=== PATIENT | female | born 1955 | race Caucasian/White ===

== ENCOUNTER 2024-11-30 15:27 | Outpatient (AMB) | payer OTHER, SELFPAY ==
--- NOTE | 2024-11-30 15:49 | MHC.OFFVIS ---
Intake Visit Reasons: 1 Year follow up/ Falls Allergies No Known Allergies Allergy (Verified 11/24/24 13:46) Medication List - Last Reconciled 11/30/24 by Tony Donnelly MD alendronate 70 mg PO QWEEK lamotrigine 200 mg PO BID lamotrigine 25 mg PO BID HPI Comments Details: 69 yo LH woman with neurofibromatosis type I, seizure disorders since she was 15 years old, and s/p ASSISTANT SHIFT SUPERVISOR shunting for NPH in 2021 for gait disorder and bladder control issue. Seizures included hearing voices leading to blacking out and tongue bite. Last seizure was in 2004. Lamictal has helped to control seizures. She used to see Dr. Solis and needed prescription. [facility] Medical History (Updated 11/30/24 @ 15:52 by Tony Donnelly MD) Seizure disorder Neurofibromatosis, peripheral, NF1 Surgical History (Updated 11/30/24 @ 15:52 by Tony Donnelly MD) S/P ASSISTANT SHIFT SUPERVISOR shunt Review of Systems Const Details: Constitutional:?No fever, chills, fatigue, weight loss, or night sweats. HEENT:?No headache, vision changes, hearing loss, nasal congestion, sore throat. Neurological:?No dizziness, syncope, seizures, numbness, tingling, weakness, tremors, memory loss. Psychiatric:?No anxiety, depression, mood swings, sleep disturbance, or hallucinations. Endocrine:?No heat/cold intolerance, polydipsia, polyuria, or hair/skin changes. Hematologic/Lymphatic:?No easy bruising, bleeding, or lymphadenopathy. Integumentary (Skin):?No rash, lesions, itching, or color changes. ? Physical Exam Neuro Other: Mental Status: Alert and oriented to person, place, and time. Normal attention. Normal spontaneous speech, fluency, and comprehension. No obvious issues with mood and memory. Affect is appropriate. Cranial Nerves: CN II: Visual clark full to confrontation, visual acuity intact. CN III, IV, : Pupils equal, round, reactive to light and accommodation. Extraocular movements are normal. CN V: Facial sensation is normal. CN VII: Facial movements symmetrical. CN VIII: Hearing intact to bedside conversation is normal. CN IX, X: Palate elevates symmetrically. CN XI: Shoulder shrug and head turn symmetrical. CN XII: Tongue midline without atrophy or fasciculations. Motor: Bulk and tone normal in all extremities. No significant muscle weakness in arms and legs. No drift. Reflexes: Deep tendon reflexes 2+ and symmetric. Plantar response down-going bilaterally. Coordination: Hlwjar-fr-vqqn and dcxu-hm-umjc testing normal. No dysmetria. Gait and Station: No obvious gait abnormality. No ataxia or instability. Sensory: Intact to light touch, pinprick, and vibration. Romberg is negative. Extrapyramidal: Full facial expressions and blinking. No rigidity. Movements are appropriate with no tremor or abnormality. Speech: Normal; no dysarthria or tremor. Assessment & Plan Assessment & Plan (1) Seizure disorder: Code(s): G40.909 - Epilepsy, unspecified, not intractable, without status epilepticus Category: Medical (2) Neurofibromatosis, peripheral, NF1: Code(s): Q85.01 - Neurofibromatosis, type 1 Category: Medical (3) S/P ASSISTANT SHIFT SUPERVISOR shunt: Code(s): Z98.2 - Presence of cerebrospinal fluid drainage device Category: Surgical Plan Impression: 1. 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 Neurofibromatosis type 1 3. Status post ventriculoperitoneal shunting done for clinical features of normal-pressure hydrocephalus in 2021 4. Recent lamotrigine level was 14.4, which might be the reason for dizziness and falling. Recommendations: 1. Lamotrigine 200mg tab, 1/2 in am and one at night 2. DC Lamotrigine 25mg tabs, which she was not taking anyway 3. Lamotigine level in a week time Orders: Orders Lamotrigine Lamictal 1 Week G40.909 - Epilepsy, unspecified, not intractable, without status epilepticus Coding Level of Care Code Est Pt Level 4 (04026) Diagnoses Seizure disorder G40.909 Neurofibromatosis, peripheral, NF1 Q85.01 S/P ASSISTANT SHIFT SUPERVISOR shunt Z98.2
--- OUTSIDE RECORDS SUMMARY | 2024-11-30 15:59 | XMS_ITS | Encounter Summary ---
Author Organization [facility] Address [address] [place] [address] Care Team Providers Care Studio Hand Name Role Phone Angelica San Primary Care Provide r Reason for Visit * Reason Onset Date Comments PAC Appt Request - Established 11/02/2024 Encounter Details Date Type Department Care Team (Late Contact Info) Description 11/02/2024 Telephone [facility] [address] [place] [address] [phone] Telephone Intake, Staff PAC Appt Request - Established Social History Tobacco Use Types Packs/Day Years Used Date Smoking Tobacco: Never Smokeless Tobacco: Never Alcohol Use Standard Drinks/Week Comments Never 0 (1 standard drink = 0.6 oz pur e alcohol) Comments No Sex and Gender Information Value Date Recorded Sex Assigned at Female 06/07/2020 1:17 PM EST Legal Sex Female 12:10 AM EDT Gender Identity Female 06/07/2020 1:17 PM EST Sexual Orientation Straight 06/07/2020 1: 17 PM EST documented as of this encounter Miscellaneous Notes * Telephone Encounter - Rosa Velazquez - 11/02/2024 3:[address] Christian Pt Pt's sister is calling to state that the appt on is supposed to be a telehealth, but it's luzma as an office visit. If you could please contact the pt's sister eula back at the number listed? @[phone] Thanks documented in this encounter Plan of Treatment Not on file documented as of this encounter Visit Diagnoses Not on filedocumented in this encounter Care Teams Studio Hand Relationship Specialty Start Date End Date Angelica San [address] [place] [id number] PCP - General Internal Medicine 11/21/23 documented as of this encounter
--- OUTSIDE RECORDS SUMMARY | 2024-11-30 15:59 | XMS_ITS | Clinical Summary ---
Author Organization [facility] Address [address] [facility] [address] [place] [id number] Phone Care Team Providers Care Box Strapper Name Role Phone Pastor Palomo MD Primary Care Provider [phone] Allergies No known active allergies Medications lamoTRIgine (LAMICTAL) 200 MG IMMEDIATE release tablet Take 200 mg by mouth 2 (two) times a day. Active cyanocobalamin, vitamin B-12, 100 MCG tablet Take 100 mcg by mouth daily. Active pyridoxine, vitamin B6, (B-6) 25 MG tablet Take 25 mg by mouth daily. Active atorvastatin (LIPITOR) 40 MG tablet Take 40 mg by mouth daily. Active alendronate (FOSAMAX) 35 MG tablet Take 35 mg by mouth every 7 days. Take in the morning with a full glass of water, on an empty stomach, and do not take anything else by mouth or lie down for the next 30 min. Active docusate sodium (COLACE) 100 MG capsule Take 1 capsule (100 mg total) by mouth 2 (two) times a day as needed for mild constipation. 20 capsule 3 Active Additional Information Patient not taking.Reported on 08/29/2023 calcium carbonate/vitam in D3 (CALCIUM 500 + D, D3, ORAL) Take 500 mg by mouth daily. 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 Normal pressure hydrocephalus 08/29/2023 Seizures 03/07/2023 Social History Tobacco Use Types Packs/Day Years Used Date Smoking Tobacco: Never Smokeless Tobacco: Never Tobacco Cessation:Counseling Given: Not Answered Alcohol Use Standard Drinks/Week Comments Never 0 (1 standard drink = 0.6 oz pur e alcohol) Education Answer Date Recorded Are you interested in more education? Not on yesika e 09/14/2022 Are you concerned about learning? Not on file 09/14/2022 No 09/14/2022 No 09/14/2022 Digital Access Answer Date Recorded No 10/07/2022 No 10/07/2022 Reliable internet access at home? Not on file 10/07/2022 Device with a working camera? Not on file Intimate Partner Violence Answer Date R ecorded Are you denied basic needs s uch as food, clothing, or medical care? No 03/07/2023 In the past 12 months have y ou been in a relationship with a person who hurts, threatens, or tries to control you? No 03/07/2023 Are you denied basic needs s uch as food, clothing, or medical care? No 03/07/2023 In the past 12 months have y ou been in a relationship with a person who hurts, threatens, or tries to control you? No 03/07/2023 Comments No Sex and Gender Information Value Date Recorded Sex Assigned at Female 03/01/2021 11:11 AM EDT Legal Sex Female 6:44 PM EST Gender Identity Female 03/01/2021 11:11 AM EDT Sexual Orientation Straight 03/01/2021 11 :11 AM EDT Last Filed Vital Signs Vital Sign Reading Time Taken Comments Blood Pressure 122/79 08/29/2023 1:43 PM EDT Pulse 81 08/29/2023 1:43 PM EDT Temperature 36.4 C (97.6 F) 08/29/2023 1:43 PM EDT Respiratory Rate 16 08/29/2023 1:43 PM EDT Oxygen Saturation 100% 08/29/2023 1:43 PM EDT Inhaled Oxygen Concentration - - Weight 70.5 kg (155 lb 6.4 oz) 08/29/2023 1:43 P M EDT Height 162.6 cm (5' 4 ) 03/07/2023 6:30 AM EDT Body Mass Index 26.67 03/07/2023 6:30 AM EDT Plan of Treatment Upcoming Encounters Date Type Department Care Team (Late st Contact Info) Description 12/01/2024 2:00 PM EDT Office Visit [facility] [address], [address] [place] [address] Bandar Moore MD [address] [place] [address] [email or web address] Maintenance Due Date Last Done Comments LIPID PANEL 1956 DEPRESSION SCREENING 1968 HEPATITIS C SCREENING 02/20/1974 SCREENING FOR DIABETES 02/20/1991 MAMMOGRAM 1996 COLOGUARD 02/20/2001 COLONOSCOPY 02/20/2001 COLORECTAL CANCER SCREENING 02/20/2001 FIT TEST 02/20/2001 FOBT 02/20/2001 SIGMOIDOSCOPY 02/20/2001 VIRTUAL COLONOSCOPY 02/20/2001 PNEUMOCOCCAL VACCINES (50+ years) (1 of 1 - PCV) 02/20/2006 ZOSTER VACCINES (2 of 2) 10/04/2019 08/09/2019 OSTEOPOROSIS SCREENING INITI AL (ONE-TIME) 02/20/2021 COVID-19 VACCINE (4 - 2023-2 5 season) 2024 03/16/2021, 08/26/2020, 07/29/2020 Adult Td,Tdap Booster 12/05/2025 12/06/2015 , 02/15/2006 RSV VACCINE (1 - 1-dose 75+ series) 02/20/2031 SMOKING STATUS SCREENING (On ce After 26 Yrs) Completed 03/07/2023 HEPATITIS A VACCINES Aged Out No long er eligible based on patient's age to complete this topic HIB VACCINES Aged Out No longer eligi ble based on patient's age to complete this topic MENINGOCOCCAL VACCINES (ACWY) Aged Out No longer eligible based on patient's age to complete this topic MENINGOCOCCAL VACCINES (B) Aged Out N o longer eligible based on patient's age to complete this topic Medical Devices Implanted Type Area Enterprise Infrastructure Architect Device Identifier Shelf Expiration Date Model / Serial / Lot Zaynab[employer] Hakim Programmable Shunt Valve-01/25/2021 Implanted:01/26/20 21 (Quantity not on file) ANIA Description:11/05/22 [id number] Pierce supriya had a Codman Hakim programmable shunt valve implanted on 01/25/21 at [facility], per the surgical notes. Per the legal administrative assistant, The Codman Hakim Programmable Valve is considered to be MRI Conditional according to ASTM F2503. The valve demonstrates no known hazards when an MRI is performed under the following conditions: MRI can be performed at any time after implantation Use an MRI System with a static magnetic field of 3 luiz or less Use an MRI System with a spatial gradient of 720 Guass/cm or less Limit the exposure to RF energy to a hewcm-xbwa-istexwqu specific absorption rate (RAUL) of W/kg for 15 minutes Verify the valve setting after the MRI procedure (see 'Programming the Valve') Insurance MEDICARE PART A & B [facility] MEDICARE REPLACEMENT MEDICARE PART A & B Member Subscriber Plan / Payer (Ef fective 2004-Present) Name:Antonina Omer Member ID:[id number] Relation to Subscriber:Self Name:Antonina Omer Subscriber ID:[id number] Payer ID:[id number] Group ID:Not on file Type:Medicare Address: [employer] [address] [place] [id number] [place] [address] MEDICARE REPLACEMENT MEDICARE PART A & B MEDICARE PART A & B MEDICARE PART A & B O MEDICARE REPLACEMENT MEDICARE PART A & B MEDICARE PART A & B Member Subscriber Plan / Payer (Ef fective 2004-Present) Name:Antonina Omer Member ID:[id number] Relation to Subscriber:Self Name:Antonina Omer Subscriber ID:[id number] Payer ID:[id number] Group ID:Not on file Type:Medicare Address: [employer] [address] MEDICARE REPLACEMENT [place] [address] MEDICARE PART A & B [facility] MEDICARE REPLACEMENT MEDICARE PART A & B [facility] MEDICARE REPLACEMENT Care Teams Box Strapper Relationship Specialty Start Date End Date Pastor Palomo MD [address] [place] [address] PCP - General Internal Medicine 03/01/21 Additional Source Comments The information contained in this document represents components of the legal health record. It is not the complete legal health record.[facility]
--- OUTSIDE RECORDS SUMMARY | 2024-11-30 15:59 | XMS_ITS | Clinical Summary ---
Author Organization [facility] [address] [place] [address] [place] [phone] Phone Care Team Providers Care Shore Worker Name Role Phone Mami Jimenez MD Primary Care Prov ider Allergies Active Allergy Reactions Criticality Noted Date Comments Atorvastatin Weakness Low 01/01/2024 Other Reaction(s): Myalgia and Joint Pain Medications ascorbic acid (VITAMIN C) 500 mg tablet OTC Active calcium carbonate (CALCIUM 500 ORAL) OTC Active CYANOCOBALAMIN, VITAMIN B-12, ORAL OTC Active pyridoxine HCl, vitamin B6, (VITAMIN B-6 ORAL) OTC Active lamoTRIgine (LaMICtal) 200 mg tablet Take 1 tablet (200 mg total) by mouth 2 (two) times a day. Dr. Gale from [place] prescribed meds Active alendronate (FOSAMAX) 70 mg tablet TAKE 1 TABLET BY MOUTH EVERY 7 DAYS 12 tablet 1 5 Active simvastatin (ZOCOR) 10 mg tablet Take 1 tablet (10 mg total) by mouth at bedtime. 30 each 5 5 03/06/20 25 Active Active Problems Problem Noted Date Diagnosed Date Hydrocephalus, communicating (CMS/HCC V24, CMS/H CC V28) 08/09/2020 Thyroid nodule 02/16/2019 Overview (04/16/2024): Last Assessment & Plan: Encouraged her to have a thyroid ultrasound at her convenience. She seems to think this may have been diagnosed previously, but is uncertain. Will also check TFT's. Ankle swelling, left 01/15/2019 NPH (normal pressure hydroce phalus) (CMS/HCC V24, CMS/HCC V28) 01/15/2019 Overview (04/16/2024): Dr. 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 rock Encounters Date Type Department Care Team Description 11/16/2024 8:30 AM EDT Office Visit Adult [address] [phone] Rosa Allison PA Hydrocephalus, communicating (CMS/HCC V24, CMS/HCC V28) (Primary Dx); NPH (normal pressure hydrocephalus) (CMS/HCC V24, CMS/HCC V28); Neurofibromatosis (CMS/HCC V24, CMS/HCC V28); Convulsions, unspecified convulsion type (CMS/HCC V24, CMS/HCC V28); Gait instability; Frequent falls; Elevated glucose; Seen in emergency department 11/09/2024 11:16 AM EDT - 11/09/2024 4:29 PM EDT Emergency [facility] Emergency [address] [place] [id number] Fall, initial encounter (Primary Dx) Discharge Disposition: Home or Self Care 10/29/2024 8:45 AM EDT Office Visit Adult [address] [phone] Sally Singh NP Dizziness (Primary Dx); Vertigo; Decreased mobility; Encounter for examination following treatment at hospital 10/15/2024 10:00 AM EDT Consult Endocrinology - [address] [phone] Kwadwo Babcock MD Thyroid nodule (Primary Dx) 10/01/2024 10:05 AM EDT - 10/01/2024 3:19 PM EDT Emergency [facility] Emergency [address] [place] [phone] Wilber Dunne MD Vertigo (Primary Dx) Discharge Disposition: Home or Self Care 09/23/2024 Telephone Adult Medicine [address] [phone] Mami Patricia MD faxed order ([facility] PT - #[id number]) 09/16/2024 8:41 AM EDT - 09/16/2024 11:59 PM EDT Hospital Encounter Radiology Department - [address] [phone] Thyroid nodule Discharge Disposition: Home or Self Care 09/07/2024 8:45 AM EDT Office Visit Adult Medicine [address] [phone] Brenda Altamirano PA Hypercholesterolemia (Primary Dx); Age-related osteoporosis without current pathological fracture; Neurofibromatosis (CMS/HCC V24, CMS/HCC V28); Gait instability; Thyroid nodule from Last 3 Months Immunizations Name Administration Dates Next Due Influenza Quadravalent, MDCK , 0.5ml, preservative free (Flucelvax) 6mo and older 01/15/2019 Influenza trivalent, 0.5mL ( Fluad) 65yo and older 02/14/2022,2021 Influenza trivalent, 0.5mL, preservative free (Fluarix; FluLaval; Fluzone) ages 6mo and older (Afluria) 3 years and older 01/12/2020,02/08/2018,02/07/2017,02/05,03/14/2015,02/15/2006 Influenza trivalent, with pr eservative (Fluzone; Afluria) 6mo and older 03/19/2012,03/07/2011 Pfizer (ages 12 & older) Biv alent, COVID-19 01/30/2022 Pneumococcal conjugate 20 va lent (Prevnar 20, PCV 20) 2mo and older 12/18/2022 Pneumococcal polysaccharide 23 valent (Pneumovax 23) 2yo and older 06/23/2021 Td Tetanus diptheria (Tdvax) 7yo and older 02/15/2006 Tdap Tetanus diptheria acell ular pertussis (Boostrix; Adacel) 7yo and older 12/06/2015 Zoster recombinant (Shingrix ) 19yo and older 08/09/2019 Surgical History Surgery Date Site/Laterality Comments OTHER SURGICAL HISTORY PROCEDURE: CO HEMORRHOIDECTOMY NTRNL & XTRNL 1 COLUMN/GROUP OTHER SURGICAL HISTORY 02/15 PROCEDURE: MAMMOGRAM FLEXIBLE SIGMOIDOSCOPY 10/31/2007 PROCEDURE: CO SIGMOIDOSCOPY FLX DX W/COLLJ SPEC BR/WA IF PFRMD; COMMENT: Negative to 30 cm OTHER SURGICAL HISTORY PROCEDURE: HISTORICAL UNSPECIFIED SURGERY; COMMENT: fibroma in arm TONSILLECTOMY PROCEDURE: HISTORICAL TONSILLECTOMY Medical History Medical History Date Comments Other convulsions 02/11/2006 DX:Other convu lsions Neurofibromatosis, unspecified(237.70) 02/15/2006 DX:Neurofibromatosis, unspecified(237.70) Pure hypercholesterolemia 02/15/2006 DX:Pur e hypercholesterolemia Special screening for malign ant neoplasms, colon 10/31/2007 DX:Special screening for mal ignant neoplasms, colon; COMMENT: Negative/inc CN to 30 cm 10/31/2007. Family History Medical History Relation Name Comments Breast cancer Mother 80s Colon cancer Neg Hx Ovarian cancer Neg Hx Pancreatic cancer Neg Hx Prostate cancer Neg Hx Uterine cancer Neg Hx Relation Name Status Comments Mother 80s Social History Tobacco Use Types Packs/Day Years Used Date Smoking Tobacco: Never Smokeless Tobacco: Never Tobacco Cessation:Counseling Given: Not Answered Alcohol Use Standard Drinks/Week Comments Yes 0 (1 standard drink = 0.6 oz pur e alcohol) Housing Instability Answer Date Recorde d Are you worried that in the next 2 months you may not have stable housing? No 07/01/2024 Food Access & Nutrition Answer Date Rec orded Do you have access to a vari ety of food including fruits and vegetables? Yes 07/01/2024 Health Literacy Answer Date Recorded How often do you need to hav e someone help you when you read instructions, pamphlets, or other written material from your doctor or pharmacy? Often 07/01/2024 Caregiver: How often do you need to have someone help you when you read instructions, pamphlets, or other written material from your doctor or pharmacy? Not on file 07/01/2024 Transportation Answer Date Recorded Has the lack of transportati on kept you from meetings, work, or from getting things needed for daily living? No Has the lack of transportati on kept you from medical appointments or from getting medications? No 07/01/2024 Social Isolation Answer Date Recorded How often do you feel lonely or isolated from th ose around you? Rarely 07/01/2024 Food Risk Answer Date Recorded Within the past 12 months we worried whether our food would run out before we got money to buy more. Never true 07/01/2024 Within the past 12 months th e food we bought just didn't last and we didn't have money to get more. Never true 07/01/2024 Dependent Care Answer Date Recorded Do you need help finding or paying for care for your loved ones. For example, child protective services specialist or elderly care for an older adult? No 07/01/2024 Education Answer Date Recorded Do you think completing more education or training, like finishing a GED, going to college, or learning a trade, would be helpful for you? No 07/01/2024 Employment and Income Answer Date Recor ded During the last four weeks, have you been actively looking for work? No 07/01/2024 Living Situation Answer Date Recorded What is your living situation? 0 07/01/2024 Comments No Sex and Gender Information Value Date Recorded Sex Assigned at Not on file Legal Sex Female 7:54 PM EST Gender Identity Not on file Sexual Orientation Not on file Obstetrics History Para Term AB IAB SAB Ectopic Multiple Livin g Live Births 0 0 0 Last Filed Vital Signs Vital Sign Reading Time Taken Comments Blood Pressure 104/64 11/16/2024 8:29 AM EDT Pulse 92 11/16/2024 8:29 AM EDT Temperature 36.6 C (97.9 F) 11/16/2024 8:29 AM EDT Respiratory Rate 14 11/16/2024 8:29 AM EDT Oxygen Saturation 96% 11/16/2024 8:29 AM EDT Inhaled Oxygen Concentration - - Weight 71.7 kg (158 lb) 11/16/2024 8:29 AM EDT Height 162.6 cm (5' 4 ) 11/16/2024 8:29 AM EDT Body Mass Index 27.12 11/16/2024 8:29 AM EDT Plan of Treatment Upcoming Encounters Date Type Department Care Team (Late st Contact Info) Description 02/23/2025 1:00 PM EDT Office Visit [facility] [address] [place] [phone] Cooper Woo MD [address] [place] [address] Dr [address] [place] [address] 02/25/2025 10:00 AM EDT Appointment Bone Density - [address] [phone] 03/09/2025 9:30 AM EDT Office Visit Adult [facility] - [address] [phone] Mami Jimenez MD [address] [place] [address] [phone] Health Maintenance Due Date Last Done Comments Zoster Vaccines (2 of 2) 10/04/2019 08/09/2019 Medicare Annual Wellness Visit 04/21/2022 Influenza Vaccine (#1) 2025 2, 2021, 01/12/2020, Additional history exists Social Influencers of Health Screening 07/01/2025 07/01/2024 Falls Risk Assessment 07/02/2025 07/02/2024 DTaP,Tdap,and Td Vaccines (3 - Td or Tdap) 12/05/2025 12/06/2015, 02/15/2006 Breast Cancer Screening 06/13/2026 06/13/19 25, 05/25/2023, 05/19/2022, Additional history exists Colorectal Cancer Screening: Colonoscopy 08/31/2027 08/30/2022 Cholesterol Screening (Lipid Panel) 09/07/2029 09/07/2024, 02/13/2024, 02/13/2024 RSV Immunization Adult Patients (1 - 1-dose 75+ series) 02/20/2031 Osteoporosis Screening (Bone Density Screening) 05/18/2034 05/18/2024, 09/29/2021 Hepatitis C Screening Completed 10/17/2016 Pneumococcal Vaccine: 50+ Years Completed 12/18/2022, 06/23/2021 Depression Screening Completed 08/30/2024 COVID-19 Vaccine Completed 10/15/2024, 05/2023, 02/13/2023, Additional history exists HIB Vaccines Aged Out No longer eligi ble based on patient's age to complete this topic HPV Vaccines Aged Out No longer eligi ble based on patient's age to complete this topic Hepatitis A Vaccines Aged Out No long er eligible based on patient's age to complete this topic Hepatitis B Vaccines Aged Out No long er eligible based on patient's age to complete this topic IPV Vaccines Aged Out No longer eligi ble based on patient's age to complete this topic MMR Vaccines Aged Out No longer eligi ble based on patient's age to complete this topic Meningococcal ACWY Vaccine Aged Out N o longer eligible based on patient's age to complete this topic Meningococcal B Vaccine Aged Out No l onger eligible based on patient's age to complete this topic RSV Immunization Patients Under 20 months Aged Out No longer eligible based on patient's age to complete this topic Varicella Vaccines Aged Out No longer eligible based on patient's age to complete this topic Procedures Procedure Name Priority Date/Time Associated Diagnosis Comments BASIC METABOLIC PANEL Routine 11/30/2024 8:48 AM EDT Elevated glucose HEMOGLOBIN A1C Routine 11/30/2024 8:48 AM EDT Elevated glucose ECG ANNOTATED 11/10/2024 NOEL URINE CULTURE TUBE STAT 11/09/2024 3:03 PM EDT URINALYSIS WITH REFLEX MICROSCOPIC AND CULTURE STAT 11/09/2024 3:03 PM EDT URINALYSIS WITH REFLEX MICROSCOPIC AND CULTURE STAT 11/09/2024 3:[address] HEAD WO CONTRAST STAT 11/09/2024 2 :23 PM EDT CBC WITH AUTO DIFFERENTIAL STAT 11/09/2024 11:47 AM EDT MAGNESIUM STAT 11/09/2024 11:47 AM EDT BASIC METABOLIC PANEL STAT 11/09/2024 11:47 AM EDT CBC AND DIFFERENTIAL STAT 11/09/2024 11:47 AM EDT POCT GLUCOSE BLOOD Routine 11/09/2024 11 :44 AM EDT ECG 12-LEAD STAT 11/09/2024 11:30 AM EDT LAMOTRIGINE LEVEL STAT 10/01/2024 10: 57 AM EDT CBC WITH AUTO DIFFERENTIAL STAT 10/01/2024 10:41 AM EDT TROPONIN I HIGH SENSITIVITY STAT 10/01/2024 10:41 AM EDT MAGNESIUM STAT 10/01/2024 10:41 AM EDT BASIC METABOLIC PANEL STAT 10/01/2024 10:41 AM EDT CBC AND DIFFERENTIAL STAT 10/01/2024 10:41 AM EDT ECG 12-LEAD STAT 10/01/2024 10:28 AM EDT US HEAD NECK SOFT TISSUE Routine 09/16/2024 9:14 AM EDT Thyroid nodule COMPREHENSIVE METABOLIC PANEL Routine 09/07/2024 10:20 AM EDT Hypercholesterolemia LIPID PANEL WITH REFLEX TO DIRECT LDL Routine 09/07/2024 10:20 AM EDT Hypercholesterolemia THYROID STIMULATING HORMONE WITH REFLEX TO FREE T4 AND FREE T3 Routine 09/07/2024 10:20 AM EDT Thyroid nodule MG MAMMO DIGITAL SCREENING W NIC BILAT Routine 06/13/2024 1:07 PM EST Encounter for screening mammogram for breast cancer BD BONE DENSITY DXA AXIAL SKELETON Routine 05/18/2024 9:39 AM EST Encounter for screening for osteoporosis HM HEPATITIS C SCREENING Routine 10/17/2016 from Last 3 Months or Most Recently Relevant to Health Maintenance Results * Hemoglobin A1c (11/30/2024 8:48 AM EDT) [facility] Hemoglobin A1C 5.6 <6.5 % LAB CHEMISTRY METHOD 11/30/2024 11:26 AM EDT [facility] Mean Bld Glu Estim. 114 mg/dL LAB CHEMISTRY METHOD 11/30/2024 11:26 AM EDT [facility] Blood Venous blood specimen / Unknown Venipuncture / Unknown 11/30/2024 8:48 AM EDT 11/30/2024 8:48 AM EDT us Rosa SINGH LAB BLOOD ORDERABLES Final Resu lt [facility] [address] [place] [address], * (ABNORMAL) Basic metabolic panel (11/30/2024 8:48 AM EDT) Only the most recent of3 resultswithin the time period is included. [facility] Sodium 138 133 - 145 mmol/L LAB CHEMISTRY METHOD 11/30/2024 1:47 PM EDT [facility] Potassium 4.4 3.5 - 5.5 mmol/L LAB CHEMISTRY METHOD 11/30/2024 1:47 PM EDT [facility] Chloride 105 96 - 110 mmol/L LAB CHEMISTRY METHOD 11/30/2024 1:47 PM T [facility] CO2 26 21 - 32 mmol/L LAB CHEMISTRY METHOD 11/30/2024 1:47 PM [facility] Anion Gap 7 3 - 11 LAB CHEMISTRY METHOD 11/30/2024 1:47 PM [facility] Glucose 86 70 - 100 mg/dL LAB CHEMISTRY METHOD 11/30/2024 1:47 PM [facility] BUN 35(H) 5 - 25 mg/dL LAB CHEMISTRY METHOD 11/30/2024 1:47 PM [facility] Creatinine 0.73 0.50 - 1.10 mg/dL LAB CHEMISTRY METHOD 11/30/2024 1:47 PM [facility] eGFR 90 >=60 mL/min/1. 73m2 LAB CHEMISTRY METHOD 11/30/2024 1:47 PM [facility] Comment:Calculation based on the Chronic Kidney Disease Epidemiology Collaboration (CKD-EPI) equation refit without adjustment for race. BUN/Creatinine Ratio 47.9 LAB CHEMISTRY METHOD 11/30/2024 1:47 PM [facility] Calcium 10.4 8.5 - 10.5 mg/dL LAB CHEMISTRY METHOD 11/30/2024 1:47 PM [facility] Blood Venous blood specimen / Unknown Venipuncture / Unknown 11/30/2024 8:48 AM EDT 11/30/2024 8:48 AM EDT us Rosa SINGH LAB BLOOD ORDERABLES Final Resu lt [facility] [address] [place] [address], * ECG-Annotated (11/10/2024) us Provider Onbase ECG ORDERABLES Final Result * (ABNORMAL) Urinalysis with reflex microscopic and culture (11/09/2024 3:03 PM EDT) Specific [place] Urine 1.012 1.003 - 1.030 LAB URINALYSIS - AUTOMATED METHOD 11/09/2024 3:17 PM [facility] pH, Urine 6.5 5.0 - 8.0 pH LAB URINALYSIS - AUTOMATED METHOD 11/09/2024 3:17 PM [facility] Leukocytes, Urine Negative Negative LAB URINALYSIS - AUTOMATED METHOD 11/09/2024 3:17 PM [facility] Nitrite, Urine Negative Negative LAB URINALYSIS - AUTOMATED METHOD 11/09/2024 3:17 PM [facility] Protein, Urine Negative <=Trace mg/dL LAB URINALYSIS - AUTOMATED METHOD 11/09/2024 3:17 PM [facility] Glucose, Urine Negative Negative mg/dL LAB URINALYSIS - AUTOMATED METHOD 11/09/2024 3:17 PM [facility] Ketones, Urine 15(A) Negative mg/dL LAB URINALYSIS - AUTOMATED METHOD 11/09/2024 3:17 PM [facility] Urobilinogen, Urine 0.2 0.2 - 1.0 mg/dL LAB URINALYSIS - AUTOMATED METHOD 11/09/2024 3:17 PM [facility] Bilirubin, Urine Negative Negative LAB URINALYSIS - AUTOMATED METHOD 11/09/2024 3:17 PM [facility] Blood, Urine Negative Negative LAB URINALYSIS - AUTOMATED METHOD 11/09/2024 3:17 PM [facility] Urine Urine specimen obtained by clean catch procedure / Unknown Non-blood Collection / Unknown 11/09/2024 3:03 PM EDT 11/09/2024 3:11 PM EDT us Ana SINGH LAB URINE ORDERABLES Final Result Performing Organization Address City/[facility]/ZIP Co de Phone Number [facility] [address] [place] [address], [place] [phone] * Noel urine culture tube (11/09/2024 3:03 PM EDT) Extra Tube Hold for add-ons. 11/09/2024 5:01 PM EDT [facility] Comment:Auto resulted. Urine Urine specimen obtained by clean catch procedure / Unknown Non-blood Collection / Unknown 11/09/2024 3:03 PM EDT 11/09/2024 3:11 PM EDT Anabeto SINGH LAB URINE ORDERABLES Final Result Performing Organization Address [facility] Co de Phone Number [facility] [address] [place] [address], [place] [phone] * CT Head wo Contrast (11/09/2024 2:23 PM EDT) Anatomical Region Laterality Modality Head and Neck Computed Tomogra phy 11/09/2024 2:32 PM EDT Impressions 11/09/2024 2:34 PM EDT Ventriculomegaly with right parietal approach ventriculostomy shunt catheter terminating in the quadrigeminal cistern. -------- FINAL REPORT -------- Dictated By: Virgilio Davidson Dictated Date: 11/09/2024 14:32 ET Assigned Physician: Virgilio Davidson Reviewed and Electronically Signed By: Virgilio Davidson Signed Date: 11/09/2024 14:34 ET Workstation ID: [id number] Transcribed By: Self Edit Transcribed Date: 11/09/2024 14:32 ET Narrative 11/09/2024 2:34 PM EDT PROCEDURE: HEAD CT INDICATION: please eval for [employer] shunt malfunction TECHNIQUE: CT of the head without intravenous contrast. Multiplanar reformats. The examination was performed utilizing dose reduction techniques. Total DLP 809 COMPARISON: There is no recent comparison examination. There is a prior MRI from 01/21/2019. FINDINGS: No acute territorial infarct, mass effect, or intracranial hemorrhage. No significant white matter disease CSF spaces commensurate for degree of volume loss. There is ventriculomegaly which appears similar to 2019. There is a right parietal approach ventriculostomy shunt catheter which terminates in the rightward aspect of the quadrigeminal cistern. Visualized paranasal sinuses are clear. Mastoid air cells are clear. No calvarial fracture. 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 Multiplanarreformats. The examination was performed utilizing dose reductiontechniques. Total DLP 809 COMPARISON: There is no recent comparison examination. There is a priorMRI from 01/21/2019. FINDINGS: No acute territorial infarct, mass effect, or intracranial hemorrhage. No significant white matter disease CSF spaces commensurate for degree of volume loss. There isventriculomegaly which appears similar to 2019. There is a right parietalapproach ventriculostomy shunt catheter which terminates in the rightwardaspect of the quadrigeminal cistern. Visualized paranasal sinuses are clear. Mastoid air cells are clear. No calvarial fracture. IMPRESSION: Ventriculomegaly with right parietal approach ventriculostomy shuntcatheter terminating in the quadrigeminal cistern. -------- FINAL REPORT -------- Dictated By: Virgilio Davidson Dictated Date: 11/09/2024 14:32 ET Assigned Physician: Virgilio Davidson Reviewed and Electronically Signed By: Virgilio Davidson Signed Date: 11/09/2024 14:34 ET Workstation ID: [id number] Transcribed By: Self Edit Transcribed Date: 11/09/2024 14:32 ET us Ana SINGH IMG CT PROCEDURES Final Re sult * (ABNORMAL) CBC auto differential (11/09/2024 11:47 AM EDT) Only the most recent of2 resultswithin the time period is included. WBC 5.1 4.8 - 10.8 [facility] HEMETOLOGY METHOD 11/09/2024 12:17 PM [facility] RBC 5.10(H) 3.80 - 4.80 M/mcL LAB HEMETOLOGY METHOD 11/09/2024 12:17 PM [facility] Hemoglobin 14.5 11.5 - 16.0 g/dL LAB HEMETOLOGY METHOD 11/09/2024 12:17 PM [facility] Hematocrit 44.5 35.0 - 47.0 % LAB HEMETOLOGY METHOD 11/09/2024 12:17 PM [facility] MCV 88.1 79.0 - 98.0 FL LAB HEMETOLOGY METHOD 11/09/2024 12:17 PM [facility] MCH 28.7 27.0 - 32.0 pcg LAB HEMETOLOGY METHOD 11/09/2024 12:17 PM [facility] MCHC 32.6 32.0 - 37.0 g/dL LAB HEMETOLOGY METHOD 11/09/2024 12:17 PM [facility] RDW 13.0 11.0 - 15.0 % LAB HEMETOLOGY METHOD 11/09/2024 12:17 PM [facility] Platelets 261 130 - 400 K/mcL LAB HEMETOLOGY METHOD 11/09/2024 12:17 PM [facility] MPV 9.4 7.0 - 11.0 FL LAB HEMETOLOGY METHOD 11/09/2024 12:17 PM [facility] NRBC 0.0 <1.0 % LAB HEMETOLOGY METHOD 11/09/2024 12:17 PM [facility] NRBC Absolute 0.00 <0.10 K/mcL LAB HEMETOLOGY METHOD 11/09/2024 12:17 PM [facility] Neutrophils Relative 82.4 % LAB HEMETOLOGY METHOD 11/09/2024 12:17 PM [facility] Lymphocytes Relative 9.6 % LAB HEMETOLOGY METHOD 11/09/2024 12:17 PM [facility] Monocytes Relative 6.4 % LAB HEMETOLOGY METHOD 11/09/2024 12:17 PM [facility] Eosinophils Relative 0.4 % LAB HEMETOLOGY METHOD 11/09/2024 12:17 PM [facility] Basophils Relative 0.6 % LAB HEMETOLOGY METHOD 11/09/2024 12:17 PM [facility] Immature Granulocytes Relative 0.6 % LAB HEMETOLOGY METHOD 11/09/2024 12:17 PM [facility] Neutrophils Absolute 4.22 1.50 - 7.00 K/mcL LAB HEMETOLOGY METHOD 11/09/2024 12:17 PM [facility] Lymphocytes Absolute 0.49(L) 1.00 - 5.00 K/mcL LAB HEMETOLOGY METHOD 11/09/2024 12:17 PM [facility] Monocytes Absolute 0.33 0.20 - 1.00 K/mcL LAB HEMETOLOGY METHOD 11/09/2024 12:17 PM [facility] Eosinophils Absolute 0.02 0.00 - 0.50 K/mcL LAB HEMETOLOGY METHOD 11/09/2024 12:17 PM [facility] Basophils Absolute 0.03 0.00 - 0.20 K/mcL LAB HEMETOLOGY METHOD 11/09/2024 12:17 PM [facility] Immature Granulocytes Absolute 0.03 0.00 - 0.03 K/mcL LAB HEMETOLOGY METHOD 11/09/2024 12:17 PM [facility] Blood Venous blood specimen / Unknown Venipuncture / Unknown 11/09/2024 11:47 AM EDT 11/09/2024 12:03 PM EDT us Jr Huizar MD LAB BLOOD ORDERABLES Final Re sult Performing Organization Address [facility] Co de Phone Number [facility] [address] [place] [address], [place] [phone] * Magnesium (11/09/2024 11:47 AM EDT) Only the most recent of2 resultswithin the time period is included. Pathologist [facility] Magnesium 2.1 1.9 - 2.6 mg/dL LAB CHEMISTRY METHOD 11/09/2024 12:33 PM EDT [facility] Blood Venous blood specimen / Unknown Venipuncture / Unknown 11/09/2024 11:47 AM EDT 11/09/2024 12:03 PM EDT Jr Huizar MD LAB BLOOD ORDERABLES Final Re sult Performing Organization Address [facility] de Phone Number [facility] [address] [place] [address], [place] [phone] * (ABNORMAL) POCT Glucose, blood (11/09/2024 11:44 AM EDT) [facility] Glucose POCT 123(H) 70 - 100 mg/dL 11/09/2024 11:44 AM EDT [facility] Blood Capillary blood specimen / Unknown 11/09/2024 11:44 AM EDT 11/09/2024 12:34 PM EDT us Generic Provider Poct LAB POINT OF CARE TEST DOCKED DEVICE UNSOLICITED RESULTS Final Result Performing Organization Address [facility] de Phone Number [facility] [address] [place] [address], [place] [phone] * ECG 12 lead (11/09/2024 11:30 AM EDT) Only the most recent of2 resultswithin the time period is included. Ventricular Rate ECG 100 BPM GEMUSE Atrial Rate 100 BPM GEMUSE P-R Interval 166 ms GEMUSE QRS Duration 86 ms GEMUSE Q-T Interval 332 ms GEMUSE QTc 428 ms GEMUSE P Wave [place] 49 degrees GEMUSE R [place] 109 degrees GEMUSE T [place] 39 degrees GEMUSE ECG Interpretation Normal sinus rhythm Possible Left atrial enlargement Rightward axis Low voltage QRS Cannot rule out Anterior infarct , age undetermined Abnormal ECG When compared with ECG of 01-OCT-2024 10:28, QRS axis Shifted right Minimal criteria for Anterior infarct are now Present Possible limb lead misplacement Confirmed by Giuseppe LOUIS JAMES ([id number]) on 11/09/2024 6:16:24 PM GEMUSE 11/09/2024 11:3 0 AM EDT 11/09/2024 6:16 PM EDT us Jr Huizar MD ECG ORDERABLES Final Result GEMUSE * Lamotrigine level (10/01/2024 10:57 AM EDT) Lamotrigine (Lamictal) Level 14.4 2.0 - 15.0 ug/mL 10/06/2024 7:12 AM EDT [facility] Comment: Lamotrigine toxic level: >20 ug/mL The reference range is not well established. It may be as wide as 1 - 20 ug/mL. If applicable, any drug confirmation testing reported here was developed and the performance characteristics determined by [facility]. This confirmation testing has not been cleared or approved by the FDA. The laboratory is regulated under CLIA as qualified to perform high-complexity testing. This test is used for patient testing purposes. It should not be regarded as investigational or for research. Test performed at [facility], [address], [place] [address] Vani Mariee MD, PhD - Systems Engineer Blood Venous blood specimen / Unknown Venipuncture / Unknown 10/01/2024 10:57 AM EDT 10/01/2024 11:02 AM EDT Wilber Dunne MD LAB BLOOD ORDERABLES Final Res ult Performing Organization Address City/[facility] Co de Phone Number [facility] [address] [place] [address] * Troponin I high sensitivity (10/01/2024 10:41 AM EDT) Pathologist [facility] High Sensitivity Troponin I <3 <=54 ng/L LAB CHEMISTRY METHOD 10/01/2024 11:32 AM EDT [facility] Blood Venous blood specimen / Unknown Venipuncture / Unknown 10/01/2024 10:41 AM EDT 10/01/2024 11:01 AM EDT Narrative [facility] - 10/01/2024 11:32 AM EDT High levels of biotin in samples may falsely decrease hsTroponin values. Use caution when interpreting hsTroponin results in patients taking biotin who exhibit renal impairment (eGFR <60) or in patients taking more than 20 mg/day of biotin. Wilber Dunne MD LAB BLOOD ORDERABLES Final Res ult Performing Organization Address [facility] de Phone Number [facility] [address] [place] [address], [place] [phone] * US Head Neck Soft Tissue (09/16/2024 9:14 AM EDT) Anatomical Region Laterality Modality Head and Neck Ultrasound 09/16/2024 9:48 AM EDT Narrative 09/16/2024 9:58 AM EDT Thyroid ultrasound. History follow-up thyroid nodule. Comparison with previous examination from 03/19/2022. Thyroid gland is heterogeneous in echotexture with normal vascularity on color Doppler examination. Right thyroid lobe measures 5 x 1.4 x 1.2 cm. No focal abnormalities were identified. Left thyroid lobe measures 4.6 x 2.2 x 1.3 cm. There is circumscribed mixed echogenicity nodule in the lower pole measuring 2.7 x 2.1 x 2.3 cm. There is slight interval progression of the central cystic components. Prior measurements are 2.5 x 1.9 x 2.4 cm. This nodule was biopsied on 05/30/2022. Results are not available in the EMR. Isthmus measures 5 mm in thickness. CONCLUSIONS: Heterogeneous in echotexture thyroid gland. Slight interval enlargement of the nodule in the lower pole of the left thyroid lobe as detailed. Please correlate clinically. CONCLUSIONS: -------- FINAL REPORT -------- Dictated By: Jayna Flores Dictated Date: 09/16/2024 09:48 ET Assigned Physician: Jayna Flores Reviewed and Electronically Signed By: Jayna Flores Signed Date: 09/16/2024 09:58 ET Workstation ID: [id number] Transcribed By: Self Edit Transcribed Date: 09/16/2024 09:48 ET Procedure Note Jayna Flores MD - 09/16/2024 Thyroid ultrasound. History follow-up thyroid nodule. Comparison with previous examination from 03/19/2022. Thyroid gland is heterogeneous in echotexture with normal vascularity oncolor Doppler examination. Right thyroid lobe measures 5 x 1.4 x 1.2 cm. No focal abnormalities wereidentified. Left thyroid lobe measures 4.6 x 2.2 x 1.3 cm. There is circumscribedmixed echogenicity nodule in the lower pole measuring 2.7 x 2.1 x 2.3 cm.There is slight interval progression of the central cystic components.Prior measurements are 2.5 x 1.9 x 2.4 cm. This nodule was biopsied on05/30/2022. Results are not available in the EMR. Isthmus measures 5 mm in thickness. CONCLUSIONS: Heterogeneous in echotexture thyroid gland. Slight intervalenlargement of the nodule in the lower pole of the left thyroid lobe asdetailed. Please correlate clinically. CONCLUSIONS: -------- FINAL REPORT -------- Dictated By: Jayna Flores Dictated Date: 09/16/2024 09:48 ET Assigned Physician: Jayna Flores Reviewed and Electronically Signed By: Jayna Flores Signed Date: 09/16/2024 09:58 ET Workstation ID: [id number] Transcribed By: Self Edit Transcribed Date: 09/16/2024 09:48 ET us Brenda SINGH IMG US PROCEDURES Final Result * Thyroid stimulating hormone with reflex to free t4 and free t3 (09/07/2024 10:20 AM EDT) Pathologist [facility] TSH 2.30 0.40 - 4.00 mcIU/mL LAB CHEMISTRY METHOD 09/07/2024 4:33 PM EDT [facility] Blood Venous blood specimen / Unknown Venipuncture / Unknown 09/07/2024 10:20 AM EDT 09/07/2024 10:20 AM EDT us Brenda SINGH LAB BLOOD ORDERABLES Final Resul t [facility] [address] [place] [address], [place] [phone] * (ABNORMAL) Lipid panel with reflex to direct LDL (09/07/2024 10:20 AM EDT) [facility] Cholesterol 302(H) 0 - 200 mg/dL LAB CHEMISTRY METHOD 09/07/2024 3:55 PM EDT [facility] Triglycerides 100 0 - 150 mg/dL LAB CHEMISTRY METHOD 09/07/2024 3:55 PM EDT [facility] HDL 75 >=40 mg/dL LAB CHEMISTRY METHOD 09/07/2024 3:55 PM EDT [facility] LDL Calculated 207(H) 0 - 100 mg/dL LAB CHEMISTRY METHOD 09/07/2024 3:55 PM EDT [facility] VLDL Cholesterol Yahir 20 mg/dL LAB CHEMISTRY METHOD 09/07/2024 3:55 PM EDT [facility] Non HDL Chol. (LDL+VLDL) 227(H) <145 mg/dL LAB CHEMISTRY METHOD 09/07/2024 3:55 PM EDT [facility] Chol/HDL Ratio 4.0 0.0 - 4.4 LAB CHEMISTRY METHOD 09/07/2024 3:55 PM [facility] Blood Venous blood specimen / Unknown Venipuncture / Unknown 09/07/2024 10:20 AM EDT 09/07/2024 10:20 AM EDT us Brenda Adarsh PA LAB BLOOD ORDERABLES Final Resul t [facility] [address] [place] [address], [place] [phone] * Comprehensive metabolic panel (09/07/2024 10:20 AM EDT) Sodium 138 133 - 145 mmol/L LAB CHEMISTRY METHOD 09/07/2024 3:55 PM [facility] Potassium 4.2 3.5 - 5.5 mmol/L LAB CHEMISTRY METHOD 09/07/2024 3:55 PM [facility] Chloride 106 96 - 110 mmol/L LAB CHEMISTRY METHOD 09/07/2024 3:55 PM [facility] CO2 23 21 - 32 mmol/L LAB CHEMISTRY METHOD 09/07/2024 3:55 PM [facility] Anion Gap 9 3 - 11 LAB CHEMISTRY METHOD 09/07/2024 3:55 PM [facility] Glucose 96 70 - 100 mg/dL LAB CHEMISTRY METHOD 09/07/2024 3:55 PM [facility] BUN 23 5 - 25 mg/dL LAB CHEMISTRY METHOD 09/07/2024 3:55 PM [facility] Creatinine 0.66 0.50 - 1.10 mg/dL LAB CHEMISTRY METHOD 09/07/2024 3:55 PM [facility] eGFR 96 >=60 mL/min/1. 73m2 LAB CHEMISTRY METHOD 09/07/2024 3:55 PM EDT [facility] Comment:Calculation based on the Chronic Kidney Disease Epidemiology Collaboration (CKD-EPI) equation refit without adjustment for race. BUN/Creatinine Ratio 34.8 LAB CHEMISTRY METHOD 09/07/2024 3:55 PM EDT [facility] Calcium 9.7 8.5 - 10.5 mg/dL LAB CHEMISTRY METHOD 09/07/2024 3:55 PM T [facility] AST (SGOT) 15 10 - 42 unit/L LAB CHEMISTRY METHOD 09/07/2024 3:55 PM [facility] ALT (SGPT) 20 10 - 60 unit/L LAB CHEMISTRY METHOD 09/07/2024 3:55 PM [facility] Alkaline Phosphatase 108 42 - 121 unit/L LAB CHEMISTRY METHOD 09/07/2024 3:55 PM [facility] Total Protein 7.6 6.0 - 8.0 g/dL LAB CHEMISTRY METHOD 09/07/2024 3:55 PM [facility] Albumin 4.1 3.2 - 5.0 g/dL LAB CHEMISTRY METHOD 09/07/2024 3:55 PM [facility] Total Bilirubin 0.6 0.0 - 1.4 mg/dL LAB CHEMISTRY METHOD 09/07/2024 3:55 PM [facility] Blood Venous blood specimen / Unknown Venipuncture / Unknown 09/07/2024 10:20 AM EDT 09/07/2024 10:20 AM EDT us Brenda Adarsh SINGH LAB BLOOD ORDERABLES Final Resul t [facility]) [facility] [address] [place] [address], [place] [phone] * MG Mammo Digital Screening w Nic bilat (06/13/2024 1:07 PM EST) Anatomical Region Laterality Modality Breast Bilateral Mammography 06/13/2024 4:13 PM EST Impressions 06/13/2024 4:19 PM EST No mammographic evidence of malignancy. BI-RADS CATEGORY: 1 - NEGATIVE RECOMMENDATION: Screening bilateral mammogram is recommended in 1 year. Mammo Location: [facility], [address] [place] [address], [id number], . -------- FINAL REPORT -------- Dictated By: Jayna Flores Dictated Date: 06/13/2024 16:13 ET Assigned Physician: Jayna Flores Reviewed and Electronically Signed By: Jayna Flores Signed Date: 06/13/2024 16:19 ET Workstation ID: [id number] Transcribed By: Self Edit Transcribed Date: 06/13/2024 16:13 ET Narrative 06/13/2024 4:19 PM EST Bilateral screening mammograms. CLINICAL: 69 years old, Female, routine annual exam. COMPARISON: Prior mammograms, latest from 05/25/1933. TECHNIQUE: Bilateral MLO and CC views were obtained digitally with 2-D C views and 3-D mammogram (digital breast tomosynthesis). Computer-aided detection was utilized in evaluation of this exam (CAD). FINDINGS: Again noted are multiple rounded skin lesions, patient has known neurofibromatosis. There is no evidence of suspicious mass or architectural distortion. No worrisome calcifications are evident. There has been no significant change from prior exam(s). BREAST DENSITY: B - There are scattered areas of fibroglandular density. Procedure Note Jayna Flores MD - 06/13/2024 Bilateral screening mammograms. CLINICAL: 69 years old, Female, routine annual exam. COMPARISON: Prior mammograms, latest from 05/25/1933. TECHNIQUE: Bilateral MLO and CC views were obtained digitally with 2-D Cviews and 3-D mammogram (digital breast tomosynthesis). Computer-aideddetection was utilized in evaluation of this exam (CAD). FINDINGS: Again noted are multiple rounded skin lesions, patient has knownneurofibromatosis. There is no evidence of suspicious mass or architectural distortion. Noworrisome calcifications are evident. There has been no significantchange from prior exam(s). BREAST DENSITY: B - There are scattered areas of fibroglandular density. IMPRESSION: No mammographic evidence of malignancy. BI-RADS CATEGORY: 1 - NEGATIVE RECOMMENDATION: Screening bilateral mammogram is recommended in 1 year. Mammo Location: [facility], [address] [place] [address], [id number], . -------- FINAL REPORT -------- Dictated By: Jayna Flores Dictated Date: 06/13/2024 16:13 ET Assigned Physician: Jayna Flores Reviewed and Electronically Signed By: Jayna Flores Signed Date: 06/13/2024 16:19 ET Workstation ID: [id number] Transcribed By: Self Edit Transcribed Date: 06/13/2024 16:13 ET us Mami Jimenez MD IMG BI PROCEDURES Final Result * BD Bone Density DXA Axial Skeleton (05/18/2024 9:39 AM EST) Anatomical Region Laterality Modality Wrist, Hip, L-spine Bone Densito metry 05/18/2024 2:21 PM EST Impressions 05/18/2024 2:23 PM EST Impression: This patient is considered to have osteoporosis by WHO criteria. The [facility] Department of Internal Medicine recommends using National Osteoporosis Foundation (NOF) guidelines in treatment decisions related to osteoporosis. NOF guidelines suggest considering treatment for postmenopausal women and men aged 50 or older presenting with the following: History of hip or vertebral fracture. T-score = -2.5 (DXA) at the femoral neck, total hip, or spine, after appropriate evaluation to exclude secondary causes. Low bone mass (T-score between -1.0 and -2.5 at the femoral neck or spine) AND a 10-year probability of a hip fracture = 3% OR a 10-year probability of a major osteoporosis-related fracture = 20% based on the [place]-adapted WHO algorithm Please note that all treatment decisions require clinical judgment and consideration of individual patient factors, including patient preferences, co-morbidities, previous drug use, risk factors not captured in the FRAX model (e.g., frailty, falls, vitamin D deficiency, increased bone turnover, interval significant decline in bone density) and possible under- or over-estimation of fracture risk by FRAX. Optional alternative screening schedule based on jens Hernández., [facility] May 31, 2011 for patients with osteopenia (based on hip BMD T-score) is as follows: * advanced osteopenia (T scores -2.00 to -2.49), BMD testing every year * moderate osteopenia (T scores -1.50 to -1.99), BMD testing every 5 years mild osteopenia or normal BMD (T scores -1.50 and higher), BMD testing every 15 years -------- FINAL REPORT -------- Dictated By: Keren Agudelo Dictated Date: 05/18/2024 14:21 ET Assigned Physician: Keren Agudelo Reviewed and Electronically Signed By: Keren Agudelo Signed Date: 05/18/2024 14:23 ET Workstation ID: [id number] Transcribed By: Self Edit Transcribed Date: 05/18/2024 14:21 ET Narrative 05/18/2024 2:23 PM EST BONE DENSITY (DEXA) Lumbar Spine T-score is -2.7. (SD relative to 20-29 y/o adult) Z-score is -0.7. (SD relative to age matched peers) This is considered osteoporosis by WHO criteria. Left Hip T-score is -3.3. Z-score is -1.6. This is considered osteoporosis by WHO criteria. Left Forearm T score is -0.4. Z score is 1.6. This is considered normal. There is dextroscoliosis of the thoracolumbar spine. Procedure Note Keren Agudelo MD - 05/18/2024 BONE DENSITY (DEXA) Lumbar Spine T-score is -2.7. (SD relative to 20-29 y/o adult) Z-score is -0.7. (SD relative to age matched peers) This is considered osteoporosis by WHO criteria. Left Hip T-score is -3.3. Z-score is -1.6. This is considered osteoporosis by WHO criteria. Left Forearm T score is -0.4. Z score is 1.6. This is considered normal. There is dextroscoliosis of the thoracolumbar spine. IMPRESSION: Impression: This patient is considered to have osteoporosis by WHO criteria. The [facility] Department of Internal Medicine recommendsusing National Osteoporosis Foundation (NOF) guidelines in treatmentdecisions related to osteoporosis. NOF guidelines suggest consideringtreatment for postmenopausal women and men aged 50 or older presentingwith the following: History of hip or vertebral fracture. T-score = -2.5 (DXA) at the femoral neck, total hip, or spine, afterappropriate evaluation to exclude secondary causes. Low bone mass (T-score between -1.0 and -2.5 at the femoral neck or spine)AND a 10-year probability of a hip fracture = 3% OR a 10-year probabilityof a major osteoporosis-related fracture = 20% based on the [place]-adapted WHOalgorithm Please note that all treatment decisions require clinical judgment andconsideration of individual patient factors, including patientpreferences, co-morbidities, previous drug use, risk factors not capturedin the FRAX model (e.g., frailty, falls, vitamin D deficiency, increasedbone turnover, interval significant decline in bone density) and possibleunder- or over-estimation of fracture risk by FRAX. Optional alternative screening schedule based on jens Hernández., [facility] for patients with osteopenia (based on hip BMD T-score)is as follows: * advanced osteopenia (T scores -2.00 to -2.49), BMD testing every year * moderate osteopenia (T scores -1.50 to -1.99), BMD testing every 5years mild osteopenia or normal BMD (T scores -1.50 and higher), BMD testingevery 15 years -------- FINAL REPORT -------- Dictated By: Keren Agudelo Dictated Date: 05/18/2024 14:21 ET Assigned Physician: Keren Agudelo Reviewed and Electronically Signed By: Keren Agudelo Signed Date: 05/18/2024 14:23 ET Workstation ID: [id number] Transcribed By: Self Edit Transcribed Date: 05/18/2024 14:21 ET us Mami Jimenez MD IMG DXA PROCEDURES Final Result * Hepatitis C Screening (10/17/2016) Hepatitis C Screening Abstarcted Historical Provider HEALTH MAINTENANCE Final Result from Last 3 Months or Most Recently Relevant to Health Maintenance Insurance [employer] Member Subscriber Plan / Payer (Ef fective 2024-Present) Name:Antonina Omer Relation to Subscriber:Self Name:Antonina Omer Payer ID:[id number] Group ID:[id number] Type:Not on file Address: [place] [address] [address] [address] Care Teams Shore Worker Relationship Specialty Start Date End Date Mami Jimenez MD [address] [place] [address] [id number] PCP - General Internal Medicine 12/12/21
== END 2024-11-30 16:20 | disposition home or self-care (01) ==
LOC: HO.HSM 15:27
PROVIDERS: PCP Internal Medicine; Visit Provider Psychiatry & Neurology Neurology
DX: G40.909 Epilepsy, unspecified, not intractable, without status epilepticus (principal); Q85.01 Neurofibromatosis, type 1; Z98.2 Presence of cerebrospinal fluid drainage device
CPT/HCPCS: 99214

== ENCOUNTER → 2024-11-30 15:27 | Outpatient (BNVA) | payer OTHER, SELFPAY | PROVIDERS: PCP Internal Medicine; Visit Provider Psychiatry & Neurology Neurology | DX: Q85.01 Neurofibromatosis, type 1 (principal); G43.009 Migraine without aura, not intractable, without status migrainosus; Z98.2 Presence of cerebrospinal fluid drainage device | CPT/HCPCS: 99212 ==

== ENCOUNTER 2025-03-01 13:16 | Outpatient (AMB) | payer OTHER, SELFPAY ==
--- NOTE | 2025-03-01 13:25 | MHC.OFFVIS ---
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 Seizures included hearing voices leading to blacking out and tongue bite. Last seizure was in 2004. Lamictal has helped to control seizures. She used to see Dr. Solis and needed prescription. [facility] Medical History (Updated 11/30/24 @ 15:52 by Tony Donnelly MD) Seizure disorder Neurofibromatosis, peripheral, NF1 Surgical History (Updated 11/30/24 @ 15:52 by Tony Donnelly MD) S/P WELDING MACHINE OPER[employer] shunt Review of Systems Narrative Constitutional:?No fever, chills, fatigue, weight loss, or night sweats. HEENT:?No headache, vision changes, hearing loss, nasal congestion, sore throat. Neurological:?No dizziness, syncope, seizures, numbness, tingling, weakness, tremors, memory loss. Psychiatric:?No anxiety, depression, mood swings, sleep disturbance, or hallucinations. Endocrine:?No heat/cold intolerance, polydipsia, polyuria, or hair/skin changes. Hematologic/Lymphatic:?No easy bruising, bleeding, or lymphadenopathy. Integumentary (Skin):?No rash, lesions, itching, or color changes. ? Physical Exam Neuro Other: Mental Status: Alert and oriented to person, place, and time. Normal attention. Normal spontaneous speech, fluency, and comprehension. No obvious issues with mood and memory. Affect is appropriate. Cranial Nerves: CN II: Visual clark full to confrontation, visual acuity intact. CN III, IV, : Pupils equal, round, reactive to light and accommodation. Extraocular movements are normal. CN V: Facial sensation is normal. CN VII: Facial movements symmetrical. CN VIII: Hearing intact to bedside conversation is normal. CN IX, X: Palate elevates symmetrically. CN XI: Shoulder shrug and head turn symmetrical. CN XII: Tongue midline without atrophy or fasciculations. Extrapyramidal: Full facial expressions and blinking. No rigidity. Movements are appropriate with no tremor or abnormality. Speech: Normal; no dysarthria or tremor. Assessment & Plan Assessment & Plan (1) Neurofibromatosis, peripheral, NF1: Code(s): Q85.01 - Neurofibromatosis, type 1 Category: Medical (2) S/P WELDING MACHINE OPERATOR [employer] shunt: Code(s): Z98.2 - Presence of cerebrospinal fluid drainage device Category: Surgical (3) Seizure disorder: Code(s): G40.909 - Epilepsy, unspecified, not intractable, without status epilepticus Category: Medical Plan Impression: 1. 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 Neurofibromatosis type 1 3. Status post ventriculoperitoneal shunting done for clinical features of normal-pressure hydrocephalus in 2021 Recommendations: 1. Lamotrigine 100mg tab, 1 in am and 2 at night Medications: New lamotrigine 100 mg orally one in am and two at night; 270 tabs 1RF Discontinued lamotrigine 1x rx for covering provider Discontinued Reason: Doctor's Order 200 mg PO BID 90 days 180 tabs 0RF Coding Level of Care Code Est Pt Level 4 (77356) Diagnoses Neurofibromatosis, peripheral, NF1 Q85.01 S/P WELDING MACHINE OPER[employer] shunt Z98.2 Seizure disorder G40.909
--- OUTSIDE RECORDS SUMMARY | 2025-03-01 16:12 | XMS_ITS | Clinical Summary ---
Author Organization [facility] Address [address] [place] [address] Care Team Providers Care Buildings And Grounds Superintendent Name Role Phone Angelica San Primary Care Provide r Allergies No known active allergies Medications LaMICtaL 200 mg tablet Take 200 mg by mouth 2 times a day. 04/05/2020 Active ascorbic acid (VITAMIN C) 500 mg tablet Take 500 mg by mouth daily. Active calcium carbonate (CALCIUM 500 ORAL) Take 500 mg by mouth daily. Active cholecalciferol (VITAMIN D3) 1,000 unit tablet Take 1,000 Units by mouth daily. Active cyanocobalamin 1,000 mcg tablet Take 1,000 mcg by mouth daily. Active pyridoxine (VITAMIN B6) 50 mg tablet Take 50 mg by mouth daily. Active acetaminophen (TYLENOL) 500 mg tablet Take 500 mg by mouth every 6 hours as needed for pain. Active alendronate (FOSAMAX) 70 mg tablet Take 70 mg by mouth once a week. Take in the morning with a full glass of water, on an empty stomach, and do not take anything else by mouth or lie down for the next 30 min Active atorvastatin (LIPITOR) 20 mg tablet 07/06/2022 Active bisacodyL (DULCOLAX) 5 mg EC tablet SMARTSI Tablet(s) By Mouth 03/19/2022 Active Active Problems Problem Noted Date Diagnosed Date NPH (normal pressure hydrocephalus) 01/25/2021 Hydrocephalus, communicating 08/09/2020 Immunizations Immunization Administration Dates Next Due INFLUENZA, SPLIT VIRUS, TRIVALENT, PF 02/06/2016 ,03/14/2015 Influenza, Injectable, [place]in [place] Canine Kidney, Preservative Free, Quadrivalent 01/15/2019 Influenza, Injectable, Quadr ivalent, Preservative Free 01/12/2020,02/08/2018,02/07/2017 Influenza, Trivalent, MDV, Injectable 03/19/2012 ,03/07/2011,02/15/2006 Tetanus Toxoid, Reduced Diph theria Toxoid, and Acellular Pertussis Vaccine, Adsorbed 12/06/2015 Tetanus and Diphtheria Toxoi ds, Adsorbed, Preservative Free (2 Lf of Tetanus Toxoid and 2 Lf of Diphtheria Toxoid) 02/15/2006 Zoster Vaccine Recombinant 08/09/2019 Family History Medical History Relation Name Comments Diabetes Brother Heart disease Father Hypertension Father Diabetes Sister 1 Relation Name Status Comments Brother Alive Father (Age 81) Mother (Age 97) Sister 1 Alive Sister 2 Alive Social History Tobacco Use Types Packs/Day Years [...] Orientation Straight 06/07/2020 1: 17 PM EST Last Filed Vital Signs Vital Sign Reading Time Taken Comments Blood Pressure 116/82 09/10/2024 2:21 PM EDT Pulse 89 09/10/2024 2:21 PM EDT Temperature 36.6 C (97.8 F) 10/16/2022 3:34 PM EDT Respiratory Rate 18 03/31/2024 1:29 PM EST Oxygen Saturation 96% 09/10/2024 2:21 PM EDT Inhaled Oxygen Concentration - - Weight 70.3 kg (155 lb) 05/04/2021 5:07 PM EST Height 162.6 cm (5' 4 ) 11/16/2021 2:59 PM EDT Body Mass Index 25.79 05/04/2021 5:07 PM EST Plan of Treatment Health Maintenance Due Date Last Done Comments Bel 1955 Colon Cancer Screening 1955 Colonoscopy 1955 FOBT / Fit Test 1955 Hepatitis C Screening 1955 Sigmoidoscopy 1955 Zoster Vaccines (2 of 2) 10/04/2019 08/09/2019 Alcohol/Substance Use Screening 05/13/2024 Depression Screening and Follow-Up 05/13/2024 Health Care Proxy Review 05/13/2024 Social Drivers of Health Annual Screening 05/13/2024 COVID-19 Vaccine ( season) 2025 02/11/2024, 02/13/2023, 09/25/2022, Additional history exists Influenza Vaccine (#1) 2025 , 01/28/2023, 02/14/2022, Additional history exists DTaP,Tdap,and Td Vaccines (2 - Td or Tdap) 12/05/2025 12/06/2015, 02/15/2006 Mammogram 06/13/2026 06/13/2024 RSV Vaccine (60+ years old and patients) (1 - 1-dose 75+ series) 02/20/2031 Pneumococcal Vaccine: 50+ Years Completed 12/18/2022, 06/23/2021 Osteoporosis Screening Completed 05/18/2024 Hepatitis B Vaccines Aged Out No long er eligible based on patient's age to complete this topic Medical Devices Implanted Type Area Lay Out Maker Device Identifier Shelf Expiration Date Model / Serial / Lot Shunt Valve Programmable - [id number] Implanted:Qty: 1 on 01/25/2021 by Pierre Christian MD at [facility] Implant Right: Cranial CODMAN 11/09/2025 [id number] / / [id number] Insurance [facility] Advance Directives Documents on File Type Date Recorded Patient Machine Whitener Expl anation Health Care Proxy 01/12/2021 1:52 PM * Full Code (Latest Code Status on File) Date Activated Date Inactivated Comments 01/25/2021 2:00 PM 01/26/2021 3:43 PM * Full Code Date Activated Date Inactivated Comments 01/25/2021 6:39 AM 01/25/2021 2:00 PM Healthcare Agents on File Name Relationship Healthcare Agent Relationshi p Communication Eula Alvarado Sister Health Care Agent Care Teams Buildings And Grounds Superintendent Relationship Specialty Start Date End Date Angelica San [address] [place] [address] PCP - General Internal Medicine 11/21/23
--- OUTSIDE RECORDS SUMMARY | 2025-03-01 16:13 | XMS_ITS | Clinical Summary ---
Author Organization [facility] Address [address] [facility] [address] [place] [address] Phone Care Team Providers Care Animal Feeder Name Role Phone Mami Jimenez MD Primary Care Prov ider Allergies No known active allergies Medications cyanocobalamin, vitamin B-12, 100 MCG tablet Take 100 mcg by mouth daily. Active pyridoxine, vitamin B6, (B-6) 25 MG tablet Take 25 mg by mouth daily. Active alendronate (FOSAMAX) 35 MG tablet Take 35 mg by mouth every 7 days. Take in the morning with a full glass of water, on an empty stomach, and do not take anything else by mouth or lie down for the next 30 min. Active simvastatin (ZOCOR) 10 MG tablet Take 10 mg by mouth daily. 09/07/2024 Active lamoTRIgine (LAMICTAL) 100 MG IMMEDIATE release tablet Take 100 mg by mouth as directed. Taking 100mg QAM and 200mg QHS (300mg total daily). 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 Normal pressure hydrocephalus 08/29/2023 Seizures 03/07/2023 Encounters Date Type Department Care Team Description 12/01/2024 2:00 PM EDT Office Visit [facility] for Neuro Oncology [address] [place] [address], 9th Floor, [address] [place] [address] Bandar Moore MD Neurofibromatosis, type 1 from Last 3 Months Social History Tobacco Use Types Packs/Day Years [...] Sign Reading Time Taken Comments Blood Pressure 105/70 12/01/2024 1:59 PM EDT Pulse 72 12/01/2024 1:59 PM EDT Temperature 36.8 C (98.2 F) 12/01/2024 1:59 PM EDT Respiratory Rate 16 12/01/2024 1:59 PM EDT Oxygen Saturation 97% 12/01/2024 1:59 PM EDT Inhaled Oxygen Concentration - - Weight 67.9 kg (149 lb 11.2 oz) 12/01/2024 1:59 PM EDT Height 164 cm (5' 4.57 ) 12/01/2024 1:59 PM EDT Body Mass Index 25.25 12/01/2024 1:59 PM EDT Plan of Treatment Upcoming Encounters Date Type Department Care Team (Late st Contact Info) Description 12/07/2025 1:00 PM EDT Office Visit [facility] for Neuro Oncology [address] [facility], 9th Floor, [address] [place] [address] Bandar Moore MD [address] [facility] [address] [place] [address] [email or web address] Health Maintenance Due Date Last Done Comments DEPRESSION SCREENING 1968 HEPATITIS C SCREENING 02/20/1974 SCREENING FOR DIABETES 02/20/1991 COLOGUARD 02/20/2001 COLONOSCOPY 02/20/2001 COLORECTAL CANCER SCREENING 02/20/2001 FIT TEST 02/20/2001 FOBT 02/20/2001 SIGMOIDOSCOPY 02/20/2001 VIRTUAL COLONOSCOPY 02/20/2001 PNEUMOCOCCAL VACCINES (50+ years) (1 of 1 - PCV) 02/20/2006 ZOSTER VACCINES (2 of 2) 10/04/2019 08/09/2019 INFLUENZA VACCINE (#1) 2024 , 01/12/2020, 01/15/2019, Additional history exists COVID-19 VACCINE ( season) 2025 03/16/2021, 08/26/2020, 07/29/2020 Adult Td,Tdap Booster 12/05/2025 12/06/2015, 006 MAMMOGRAM 06/13/2026 06/13/2024, 06/13/2024 LIPID PANEL 09/07/2029 09/07/2024 RSV VACCINE (1 - 1-dose 75+ series) 02/20/2031 SMOKING STATUS SCREENING (Once After 26 Yrs) Completed 03/07/2023 OSTEOPOROSIS SCREENING INITIAL (ONE-TIME) Completed 05/18/2024 HEPATITIS A VACCINES Aged Out No long [...] this topic Medical Devices Implanted Type Area Faucets Assembler Device Identifier Shelf Expiration Date Model / Serial / Lot Codman Hakim Programmable Shunt Valve-01/25/2021 Implanted:01/26/20 (Quantity not on file) ANIA Description:11/05/22 [id number] Pierce epps had a Codman Hakim programmable shunt valve implanted on 01/25/21 at [facility], per the surgical notes. Per the foot piece assembler, The Codman Hakim Programmable Valve is considered [...] the exposure to RF energy to a [id number] specific absorption rate (RAUL) of W/kg for 15 minutes Verify the valve setting after the MRI procedure (see 'Programming the Valve') Insurance MEDICARE PART A & [facility] MEDICARE PART A & B [facility] MEDICARE REPLACEMENT [place] [id number] MEDICARE PART A & B MEDICARE PART A & B MEDICARE PART A & B [place] [address] MEDICARE PART A & B [address] [place] [address] MEDICARE PART A & B MEDICARE REPLACEMENT MEDICARE PART A & B O MEDICARE REPLACEMENT MEDICARE PART A & B [facility] MEDICARE REPLACEMENT Care Teams Animal Feeder Relationship Specialty Start Date End Date Mami Jimenez MD [address] [place] [address] PCP - General Internal Medicine 12/01/24 Additional Source Comments The information contained in this document represents components of the legal health record. It is not the complete legal health record.[facility]
--- OUTSIDE RECORDS SUMMARY | 2025-03-01 16:13 | XMS_ITS | Encounter Summary ---
Author Organization [facility] Address [address] [facility] [address] [place] [address] Phone Care Team Providers Care Ventilation Equipment Tender Name Role Phone Pastor Palomo MD Primary Care Provider [phone] Mami Jimenez MD Primary Care Prov ider Encounter Details Date Type Department Care Team (Late st Contact Info) Description 10/16/2022 Procedure Pass [facility] - MRI [address] [facility], 6th [place] [address] Social History Tobacco Use Types Packs/Day Years Used Date Smoking Tobacco: Never Assessed Education Answer Date Recorded Are you interested in more education? Not on yesika e 09/14/2022 Are you concerned about learning? Not on file 09/14/2022 No 09/14/2022 No 09/14/2022 Digital Access Answer Date Recorded No 10/07/2022 No 10/07/2022 Reliable internet access at home? Not on file 10/07/2022 Device with a working camera? Not on file Comments Unknown Sex and Gender Information Value Date Recorded Sex Assigned at Female 03/01/2021 11:11 AM EDT Legal Sex Female 6:44 PM EST Gender Identity Female 03/01/2021 11:11 AM EDT Sexual Orientation Straight 03/01/2021 11 :11 AM EDT documented as of this encounter Plan of Treatment Upcoming Encounters Date Type Department Care Team (Late st Contact Info) Description 12/07/2025 1:00 PM EDT Office Visit [facility] for Neuro Oncology [address] [facility], 9th Floor, [address] [place] [address] Bandar Moore MD [address] [facility] [address] [place] [address] [email or web address] documented as of this encounter Visit Diagnoses Not on filedocumented in this encounter Care Teams Ventilation Equipment Tender Relationship Specialty Start Date End Date Pastor Palomo MD [address] [place] [address] PCP - General Internal Medicine 03/01/21 11/30/24 Mami Jimenez MD [address] [place] [id number] PCP - General Internal Medicine 12/01/24 documented as of this encounter Additional Source Comments The information contained in this document represents components of the legal health record. It is not the complete legal health record.[facility]
--- OUTSIDE RECORDS SUMMARY | 2025-03-01 16:13 | XMS_ITS | Encounter Summary ---
Author Organization [facility] Address [address] [facility] [address] [place] [address] Phone Care Team Providers Care Belt Lacer Name Role Phone Pastor Palomo MD Primary Care Provider [phone] Mami Jimenez MD Primary Care Prov ider Encounter Details Date Type Department Care Team (Late st Contact Info) Description 03/07/[address] [facility] PERIOP [address] [place] [address] Social History Tobacco Use Types Packs/Day Years [...] Description 12/07/2025 1:00 PM EDT Office Visit [facility] for Neuro Oncology [address] [facility], 9th Floor, [address] [place] [address] Bandar Moore MD [address] [facility] 9 [place] [address] [email or web address] documented as of this encounter Visit Diagnoses Not on filedocumented in this encounter Care Teams Belt Lacer Relationship Specialty Start Date End Date Pastor Palomo MD [address] [place] [address] PCP - General Internal Medicine 03/01/21 11/30/24 Mami Jimenez MD [address] [place] [address] PCP - General Internal Medicine 12/01/24 documented as of this encounter Additional Source Comments The information contained in this document represents components of the legal health record. It is not the complete legal health record.[facility]
--- OUTSIDE RECORDS SUMMARY | 2025-03-01 16:13 | XMS_ITS | Encounter Summary ---
Author Organization [facility] Address [address] [facility] [address] [place] [address] Phone Care Team Providers Care Flight Line Mechanic Name Role Phone Pastor Palomo MD Primary Care Provider [phone] Mami Jimenez MD Primary Care Prov ider Encounter Details Date Type Department Care Team (Late st Contact Info) Description 11/07/2022 Telephone [facility] NEUROSURGERY VIRTUAL DEPARTMENT [address] [place] [phone] Devan Dean MD [address] [place] [phone] [email or web address] Social History Tobacco Use Types Packs/Day Years [...] Description 12/07/2025 1:00 PM EDT Office Visit [facility] for Neuro Oncology [address] [facility], 9th Floor, [address] [place] [address] Bandar Moore MD [address] [facility] [address] [place] [address] [email or web address] documented as of this encounter Visit Diagnoses Not on filedocumented in this encounter Care Teams Flight Line Mechanic Relationship Specialty Start Date End Date Pastor Palomo MD [address] [place] [address] PCP - General Internal Medicine 03/01/21 11/30/24 Mami Jimenez MD [address] [place] [address] PCP - General Internal Medicine 12/01/24 documented as of this encounter Additional Source Comments The information contained in this document represents components of the legal health record. It is not the complete legal health record.[facility]
--- OUTSIDE RECORDS SUMMARY | 2025-03-01 16:13 | XMS_ITS | Encounter Summary ---
Author Organization [facility] Address [address] [place] [address] Phone Care Team Providers Care Slip Laster Name Role Phone Pastor Palomo MD Primary Care Provider [phone] Mami Jimenez MD Primary Care Prov ider Encounter Details Date Type Department Care Team (Late st Contact Info) Description 11/07/2022 Ancillary Orders [facility] Plastic and Reconstructive Surgery [address] [place] [address], 4th Floor, [address] [place] [address] Vishnu Berman MD [address] [place] [address] [address] [place] [address] [email or web address] Neurofibroma Social History Tobacco Use Types Packs/Day Years [...] Description 12/07/2025 1:00 PM EDT Office Visit [facility] for Neuro Oncology [address] [facility], 9th Floor, [address] [place] [address] Bandar Moore MD [address] [facility] 9 [place] [address] [email or web address] documented as of this encounter Results * XR SKULL LESS THAN 4 VIEWS (11/07/2022 3:43 PM EDT) Anatomical Region Laterality Modality Head Computed Radiogr aphy 11/07/2022 4:45 PM EDT Impressions 11/07/2022 4:49 PM EDT 1. BARK SKINNER shunt as above. Narrative 11/07/2022 4:49 PM EDT XR SKULL LESS THAN 4 VIEWS COMPARISON: CT HEAD OUTSIDE WITH INTERPRETATION OR CONSULT FINDINGS: Right posterior BARK SKINNER Codman Hakim Programmable Valve shunt. Catheter tubing is intact. Valve setting is approximately 120 mm of water. Procedure Note Marc Martinez MD - 11/07/2022 XR SKULL LESS THAN 4 VIEWS COMPARISON: CT HEAD OUTSIDE WITH INTERPRETATION OR CONSULT FINDINGS: Right posterior BARK SKINNER Codman Hakim Programmable Valve shunt. Catheter tubingis intact. Valve setting is approximately 120 mm of water. IMPRESSION: 1. BARK SKINNER shunt as above. us Vishnu Berman MD IMG XR HEAD AND AVERY NT SERIES Final Result documented in this encounter Visit Diagnoses Diagnosis Neurofibroma Other benign neoplasm of connective and other soft tissue of unspecified site Neurofibroma Other benign neoplasm of connective and other soft tissue of unspecified site documented in this encounter Care Teams Slip Laster Relationship Specialty Start Date End Date Pastor Palomo MD [address] [place] [address] PCP - General Internal Medicine 03/01/21 11/30/24 Mami Jimenez MD [address] [place] [address] PCP - General Internal Medicine 12/01/24 documented as of this encounter Additional Source Comments The information contained in this document represents components of the legal health record. It is not the complete legal health record.[facility]
--- OUTSIDE RECORDS SUMMARY | 2025-03-01 16:14 | XMS_ITS | Encounter Summary ---
Author Organization [facility] Address [address] [place] [address] Care Team Providers Care Process Maintenance Technician Name Role Phone Angelica San Primary Care Provide r Reason for Visit * Reason Onset Date Comments PAC Appt Request - Established 09/10/2022 N eed Fu appt with CT scan prior to appt Encounter Details Date Type Department Care Team (Late st Contact Info) Description 09/10/2022 Telephone [facility] Patient Access [facility] [address] [place] [address] Telephone Intake, Staff PAC Appt Request - Established (Need Fu appt with CT scan prior to appt) Social History Tobacco Use Types Packs/Day Years [...] encounter Miscellaneous Notes * Telephone Encounter - Caro Paultcher - 09/10/2022 3:54 PM EDT Pt sister calling in to schedule FU appt with Dr Christian. Eula (sister ) is stating she believe that pt needs a CT before appt same day. Please give sister Eula a call to schedule appt number listed. Thank you Best time for appts are early afternoons. documented in this encounter Plan of Treatment Not on file documented as of this encounter Visit Diagnoses Not on filedocumented in this encounter Care Teams Process Maintenance Technician Relationship Specialty Start Date End Date Angelica San [address] [place] [address] PCP - General Internal Medicine 11/21/23 documented as of this encounter
--- OUTSIDE RECORDS SUMMARY | 2025-03-01 16:14 | XMS_ITS | Clinical Summary ---
Author Organization [facility] [address] [place] [address] [place] [phone] Phone Care Team Providers Care Recreation Assistant Name Role Phone Mami Jimenez MD Primary Care Prov ider Allergies No known active allergies Medications ascorbic acid (VITAMIN C) 500 mg tablet OTC Active calcium carbonate (CALCIUM 500 ORAL) OTC Active CYANOCOBALAMIN , VITAMIN B-12, ORAL OTC Active pyridoxine HCl, vitamin B6, (VITAMIN B-6 ORAL) OTC Active simvastatin (ZOCOR) 10 mg tablet Take 1 tablet (10 mg total) by mouth at bedtime. 30 each 5 09/08/19 25 025 Active alendronate (FOSAMAX) 70 mg tablet TAKE 1 TABLET BY MOUTH EVERY 7 DAYS 12 tablet 1 01/27/20 25 Active lamoTRIgine (LaMICtal XR) 300 mg tablet extended release 24hr 24 hr tablet Take 1 tablet (300 mg total) by mouth 1 (one) time each day. Active lamoTRIgine (LaMICtal) 200 mg tablet Take 1 tablet (200 mg total) by mouth 2 (two) times a day. Dr. Gale from [facility] prescribed meds 025 Discontinued(Do se adjustment) lamoTRIgine (LaMICtal XR) 100 mg tablet extended release 24hr 24 hr tablet Take 150 mg by mouth 1 (one) time each day. 025 Discontinued Active Problems Problem Noted Date Diagnosed Date Abnormal EKG 02/23/2025 Assessment & Plan (02/23/2025 1:25 PM EDT): Orders: Transthoracic echocardiogram (TTE) complete with PRN contrast, bubble, strain, and 3D order panel; Future perflutren lipid microsphere (DEFINITY) 1.3 mL in sodium chloride 0.9% 8.7 mL injection Hydrocephalus, communicating ([facility] V24, [facility] V28) 08/09/2020 Thyroid nodule 02/16/2019 Overview (04/16/2024): Last Assessment & Plan: Encouraged her to have a thyroid ultrasound at her convenience. She seems to think this may have been diagnosed previously, but is uncertain. Will also check TFT's. Ankle swelling, left 01/15/2019 NPH (normal pressure hydroce phalus) ([facility] V24, [facility] V28) 01/15/2019 Overview (04/16/2024): Dr. Pierre Christian at [place] [place] neurosurgery Overweight (BMI 25.0-29.9) 10/03/2018 Osteoporosis 06/03/2012 Hypercholesterolemia 02/15/2006 Assessment & Plan (02/23/2025 1:25 PM EDT): Orders: ECG 12 lead Lipid panel with reflex to direct LDL; Future Hepatic function panel; Future LDL cholesterol, direct; Future Lipoprotein A; Future Neurofibromatosis ([facility] V24, [facility] V28) 10/2005 Convulsions ([facility] V24, [facility] V28) 6 Overview (04/16/2024): Sees Dr. rock Encounters Date Type Department Care Team Description 02/23/2025 1:00 PM EDT Office Visit [facility] [address] [place] [address] MelecioAleshia Mejia MD Hypercholesterolemia (Primary Dx); Abnormal EKG 12/05/2024 Telephone Adult Medicine [address] [phone] Rosa Allison PA from Last 3 Months Immunizations Immunization Administration Dates Next Due Influenza Quadravalent, MDCK [...] Date Site/Laterality Comments OTHER SURGICAL HISTORY PROCEDURE: [place]Y HEMORRHOIDECTOMY NTRNL & XTRNL 1 COLUMN/GROUP OTHER SURGICAL HISTORY 02/15 PROCEDURE: MAMMOGRAM FLEXIBLE SIGMOIDOSCOPY 10/31/2007 PROCEDURE: [place]Y SIGMOIDOSCOPY FLX DX W/COLLJ SPEC BR/WA IF [...] COMMENT: Negative/inc CN to 30 cm 10/31/2007. Hypercholesterolemia Family History Medical History Relation Name Comments Breast cancer Mother 80s Colon cancer Neg Hx Ovarian cancer Neg Hx Pancreatic cancer Neg Hx Prostate cancer Neg Hx Uterine cancer Neg Hx Relation Name Status Comments Mother 80s Social History Tobacco Use Types Packs/Day Years Used Date Smoking Tobacco: Never Smokeless Tobacco: Never Tobacco Cessation:Counseling Given: Not Answered Alcohol Use Standard Drinks/Week Comments Not Currently 0 (1 standard drink = 0.6 oz [...] for your loved ones. For example, child day care teacher or elderly care for an older adult? [...] Date Recorded What is your living situation? Unrecognized valu e 07/01/2024 Comments No Sex and Gender Information Value Date Recorded Sex Assigned at Not on file Legal Sex Female 7:54 PM EST Gender Identity Not on file Sexual Orientation Not on file Obstetrics History Para Term AB IAB SAB Ectopic Multiple Livin g Live Births 0 0 0 Last Filed Vital Signs Vital Sign Reading Time Taken Comments Blood Pressure 106/68 02/23/2025 12:54 PM EDT Pulse 74 02/23/2025 12:54 PM EDT Temperature 36.6 C (97.9 F) 11/16/2024 8:29 AM EDT Respiratory Rate 14 11/16/2024 8:29 AM EDT Oxygen Saturation 96% 02/23/2025 12:54 PM EDT Inhaled Oxygen Concentration - - Weight 68 kg (150 lb) 02/23/2025 12:54 PM EDT Height 165.1 cm (5' 5 ) 02/23/2025 12:54 PM EDT Body Mass Index 24.96 02/23/2025 12:54 PM EDT Plan of Treatment Upcoming Encounters Date Type Department Care Team (Late st Contact Info) Description 03/09/2025 9:30 AM EDT Office Visit Adult Medicine [address] [place], [place] [phone] Mami Jimenez MD [address] [place], [place] 05/18/2025 10:00 AM EST Ancillary Procedure [facility] [address] [place] [phone] 07/06/2025 10:40 AM EST Office Visit [facility] [address] [place] [phone] Ce Johnson NP [address] [place] [address] [place] [address] Health Maintenance Due Date Last Done Comments Zoster Vaccines (2 of 2) 10/04/2019 08/09/2019 Medicare Annual Wellness Visit 04/21/2022 Social Influencers of Health Screening 07/01/2025 07/01/2024 Falls Risk Assessment 07/02/2025 07/02/2024 DTaP,Tdap,and Td Vaccines (3 - Td or Tdap) 12/05/2025 12/06/2015, 02/15/2006 Breast Cancer Screening 06/13/2026 06/13/19, 05/25/2023, 05/19/2022, Additional history exists Colorectal Cancer Screening: Colonoscopy 08/31/2027 08/30/2022 Cholesterol Screening (Lipid Panel) 02/25/2030 02/25/2025, 02/25/2025, 09/07/2024, Additional history exists RSV Immunization Adult Patients (1 - 1-dose 75+ series) 02/20/2031 Osteoporosis Screening (Bone Density Screening) 05/18/2034 05/18/2024, 09/29/2021 Hepatitis C Screening Completed 10/17/2016 Pneumococcal Vaccine: 50+ Years Completed 12/18/2022, 06/23/2021 Depression Screening Completed 08/30/2024 COVID-19 Vaccine Completed 10/15/2024, 05/2023, 02/13/2023, Additional history exists Influenza Vaccine Completed 01/26/2025, , 2021, Additional history exists HIB Vaccines Aged Out [...] Procedure Name Priority Date/Time Associated Diagnosis Comments LIPID PANEL WITH REFLEX TO DIRECT LDL Routine 02/25/2025 10:14 AM EDT Hypercholesterolemia HEPATIC FUNCTION PANEL Routine 02/25/2025 10:14 AM EDT Hypercholesterolemia LDL CHOLESTEROL, DIRECT Routine 02/25/2025 10:14 AM EDT Hypercholesterolemia LIPOPROTEIN A Routine 02/25/2025 10:14 AM EDT Hypercholesterolemia ECG 12-LEAD Routine 02/23/2025 1:03 PM EDT Hypercholesterolemia THYROID STIMULATING HORMONE Routine 12/22/2024 1:41 PM EDT Thyroid nodule LAMOTRIGINE LEVEL Routine 12/22/2024 1:4 1 PM EDT Unclassified epileptic seizures (CMS/HCC V24, CMS/HCC V28) THYROID PEROXIDASE ANTIBODY Routine 12/22/2024 1:41 PM EDT Thyroid nodule BASIC METABOLIC PANEL Routine 11/30/2024 8:48 AM EDT Elevated glucose HEMOGLOBIN A1C Routine 11/30/2024 8:48 AM EDT Elevated glucose MG MAMMO DIGITAL SCREENING W NIC BILAT Routine 06/13/2024 1:07 PM EST Encounter for screening mammogram for breast cancer BD BONE DENSITY DXA AXIAL SKELETON Routine 05/18/2024 9:39 AM EST Encounter for screening for osteoporosis HM HEPATITIS C SCREENING Routine 10/17/2016 from Last 3 Months or Most Recently Relevant to Health Maintenance Results * (ABNORMAL) Lipid panel with reflex to direct LDL (02/25/2025 10:14 AM EDT) Cholesterol 212(H) 0 - 200 mg/dL LAB CHEMISTRY METHOD 02/25/2025 1:17 PM EDT [facility] Triglycerides 84 0 - 150 mg/dL LAB CHEMISTRY METHOD 02/25/2025 1:17 PM EDT [facility] HDL 76 >=40 mg/dL LAB CHEMISTRY METHOD 02/25/2025 1:17 PM EDT [facility] LDL Calculated 119(H) 0 - 100 mg/dL LAB CHEMISTRY METHOD 02/25/2025 1:17 PM EDT [facility] Comment:Estimated LDL Calcul ated using equation: Total cholesterol - HDL cholesterol - (Triglycerides/5) VLDL Cholesterol Yahir 16.8 mg/dL LAB CHEMISTRY METHOD 02/25/2025 1:17 PM EDT [facility] Non HDL Chol. (LDL+VLDL) 136 <145 mg/dL LAB CHEMISTRY METHOD 02/25/2025 1:17 PM EDT [facility] Chol/HDL Ratio 2.8 0.0 - 4.4 LAB CHEMISTRY METHOD 02/25/2025 1:17 PM EDT [facility] Blood Venous blood specimen / Unknown Venipuncture / Unknown 02/25/2025 10:14 AM EDT 02/25/2025 10:14 AM EDT us Aleshia Woo MD LAB BLOOD ORDERABLES F inal Result [facility] [address] [place] [address], * Lipoprotein A (02/25/2025 10:14 AM EDT) Lipoprotein a 46 0 - 75 nmol/l 03/01/2025 1:17 PM EDT [facility] Comment: >=125 nmol/L is an accepted cutoff for risk enhancement in [place] [employer]/[place] [employer] Association (ACC/AHA) guidelines. >=100 nmol/L is an accepted cutoff for risk enhancement in the [place] Cardiovascular Society (CCS) guidelines. <75 nmol/L is considered normal, 50-125 nmol/L intermediate, and >125 nmol/L abnormal in the Atherosclerotic Society (EAS) consensus statement. >100 nmol/L is accepted as a risk-enhancing cutoff in the National Lipid Association (NLA) scientific statement. Test performed at [facility], [address] , [place] [address] Vani Mariee MD, PhD - Child Caregiver Blood Venous blood specimen / Unknown Venipuncture / Unknown 02/25/2025 10:14 AM EDT 02/25/2025 10:14 AM EDT Aleshia Woo MD LAB BLOOD ORDERABLES F inal Result Performing Organization Address City/[facility] Co de Phone Number [facility] [address] [place] [address] * (ABNORMAL) LDL cholesterol, direct (02/25/2025 10:14 AM EDT) [facility] LDL Direct 120(H) <=100 mg/dL LAB CHEMISTRY METHOD 02/25/2025 1:19 PM EDT [facility] Blood Venous blood specimen / Unknown Venipuncture / Unknown 02/25/2025 10:14 AM EDT 02/25/2025 10:14 AM EDT Aleshia Woo MD LAB BLOOD ORDERABLES F inal Result Performing Organization Address City/[facility]/ZIP Co de Phone Number [facility] [address] [place] [address], [place] [phone] * Hepatic function panel (02/25/2025 10:14 AM EDT) [facility] Total Protein 7.4 6.0 - 8.0 g/dL LAB CHEMISTRY METHOD 02/25/2025 1:19 PM EDT [facility] Albumin 4.3 3.2 - 5.0 g/dL LAB CHEMISTRY METHOD 02/25/2025 1:19 PM EDT [facility] Total Bilirubin 0.5 0.0 - 1.4 mg/dL LAB CHEMISTRY METHOD 02/25/2025 1:19 PM EDT [facility] Bilirubin, Direct 0.2 0.0 - 0.3 mg/dL LAB CHEMISTRY METHOD 02/25/2025 1:19 PM EDT [facility] Bilirubin, Indirect 0.3 0.0 - 1.1 mg/dL LAB CHEMISTRY METHOD 02/25/2025 1:19 PM [facility] ALT (SGPT) 25 10 - 60 unit/L LAB CHEMISTRY METHOD 02/25/2025 1:19 PM [facility] AST (SGOT) 16 10 - 42 unit/L LAB CHEMISTRY METHOD 02/25/2025 1:19 PM T [facility] Alkaline Phosphatase 90 42 - 121 unit/L LAB CHEMISTRY METHOD 02/25/2025 1:19 PM [facility] Blood Venous blood specimen / Unknown Venipuncture / Unknown 02/25/2025 10:14 AM EDT 02/25/2025 10:14 AM EDT Aleshia Woo MD LAB BLOOD ORDERABLES F inal Result [facility] [address] [place] [address], * ECG 12 lead (02/23/2025 1:03 PM EDT) Ventricular Rate ECG 74 BPM GEMUSE Atrial Rate 74 BPM GEMUSE P-R Interval 158 ms GEMUSE QRS Duration 96 ms GEMUSE Q-T Interval 378 ms GEMUSE QTc 419 ms GEMUSE P Wave Irons 35 degrees GEMUSE R Irons -60 degrees GEMUSE T Irons 64 degrees GEMUSE ECG Interpretation Normal sinus rhythm Possible Left atrial enlargement Left axis deviation Poor R wave progression Nonspecific T wave abnormality Abnormal ECG When compared with ECG of 09-NOV-2024 11:30, No significant change was found Confirmed by ALESHIA WOO ([id number]) on 02/23/2025 1:28:23 PM GEMUSE 02/23/2025 1:03 PM EDT 02/23/2025 1:28 PM EDT us Aleshia Woo MD ECG ORDERABLES Final Result GEMUSE * (ABNORMAL) Thyroid peroxidase antibody (12/22/2024 1:41 PM EDT) Thyroid Peroxidase Ab 1,915.0(H ) <=60.0 I Unit/mL LAB CHEMISTRY METHOD 12/22/2024 5:49 PM EDT [facility] Blood Venous blood specimen / Unknown Venipuncture / Unknown 12/22/2024 1:41 PM EDT 12/22/2024 1:41 PM EDT Kwadwo Babcock MD LAB BLOOD ORDERABLES Final Res ult [facility] [address] [place] [address], [place] [phone] * Lamotrigine level (12/22/2024 1:41 PM EDT) Lamotrigine (Lamictal) Level 6.4 2.0 - 15.0 ug/mL 12/25/2024 12:26 PM EDT [facility] Comment: Lamotrigine toxic level: >20 ug/mL The reference range is not well established. It may be as wide as 1 - 20 ug/mL. If applicable, any drug confirmation testing reported here was developed and the performance characteristics determined by [facility]. This confirmation testing has not been cleared or approved by the FDA. The laboratory is regulated under CLIA as qualified to perform high-complexity testing. This test is used for patient testing purposes. It should not be regarded as investigational or for research. Test performed at [facility], [address] , [place] [address] Vani Mariee MD, PhD - Child Caregiver Blood Venous blood specimen / Unknown Venipuncture / Unknown 12/22/2024 1:41 PM EDT 12/22/2024 1:41 PM EDT Tony Donnelly MD LAB BLOOD ORDERABLES Final Result [facility] [address] [place] [address] * Thyroid stimulating hormone (12/22/2024 1:41 PM EDT) TSH 1.55 0.40 - 4.00 mcIU/mL LAB CHEMISTRY METHOD 12/22/2024 7:43 PM EDT [facility] Blood Venous blood specimen / Unknown Venipuncture / Unknown 12/22/2024 1:41 PM EDT 12/22/2024 1:41 PM EDT Kwadwo Babcock MD LAB BLOOD ORDERABLES Final Res ult [facility] [address] [place] [address], [place] [phone] * Hemoglobin A1c (11/30/2024 8:48 AM EDT) Hemoglobin A1C 5.6 <6.5 % LAB CHEMISTRY METHOD 11/30/2024 11:26 AM EDT [facility] Mean Bld Glu Estim. 114 mg/dL LAB CHEMISTRY METHOD 11/30/2024 11:26 AM EDT [facility] Blood Venous blood specimen / Unknown Venipuncture / Unknown 11/30/2024 8:48 AM EDT 11/30/2024 8:48 AM EDT us Rosa SINGH LAB BLOOD ORDERABLES Final Resu lt [facility] [address] [place] [address], [place] [phone] * (ABNORMAL) Basic metabolic panel (11/30/2024 8:48 AM EDT) Sodium 138 133 - 145 mmol/L LAB CHEMISTRY METHOD 11/30/2024 1:47 PM [facility] Potassium 4.4 3.5 - 5.5 mmol/L LAB CHEMISTRY METHOD 11/30/2024 1:47 PM [facility] Chloride 105 96 - 110 mmol/L LAB CHEMISTRY METHOD 11/30/2024 1:47 PM [facility] CO2 26 21 - 32 mmol/L LAB CHEMISTRY METHOD 11/30/2024 1:47 PM [facility] Anion Gap 7 3 - 11 LAB CHEMISTRY METHOD 11/30/2024 1:47 PM [facility] Glucose 86 70 - 100 mg/dL LAB CHEMISTRY METHOD 11/30/2024 1:47 PM [facility] BUN 35(H) 5 - 25 mg/dL LAB CHEMISTRY METHOD 11/30/2024 1:47 PM [facility] Creatinine 0.73 0.50 - 1.10 mg/dL LAB CHEMISTRY METHOD 11/30/2024 1:47 PM [facility] eGFR 90 >=60 mL/min/1. 73m2 LAB CHEMISTRY METHOD 11/30/2024 1:47 PM [facility] Comment:Calculation based on the Chronic Kidney Disease Epidemiology Collaboration (CKD-EPI) equation refit without adjustment for race. BUN/Creatinine Ratio 47.9 LAB CHEMISTRY METHOD 11/30/2024 1:47 PM EDT [facility] Calcium 10.4 8.5 - 10.5 mg/dL LAB CHEMISTRY METHOD 11/30/2024 1:47 PM EDT [facility] Blood Venous blood specimen / Unknown Venipuncture / Unknown 11/30/2024 8:48 AM EDT 11/30/2024 8:48 AM EDT us Rosa SINGH LAB BLOOD ORDERABLES Final Resu lt [facility] [address] [place] [address], [place] [phone] * MG Mammo Digital Screening w Nic bilat (06/13/2024 1:07 PM EST) Anatomical Region Laterality Modality Breast Bilateral Mammography 06/13/2024 4:13 PM EST Impressions 06/13/2024 4:19 PM EST No mammographic evidence of malignancy. BI-RADS CATEGORY: 1 - NEGATIVE RECOMMENDATION: Screening bilateral mammogram is recommended in 1 year. Mammo Location: [facility], [address] [place] [address], [address], . -------- FINAL REPORT -------- Dictated By: Jayna Flores Dictated Date: 06/13/2024 16:13 ET Assigned Physician: Jayna Flores Reviewed and Electronically Signed By: Jayna Flores Signed Date: 06/13/2024 16:19 ET Workstation ID: [id number] Transcribed By: Self Edit Transcribed Date: 06/13/2024 [...] is recommended in 1 year. Mammo Location: [facility], [address] [place] [address], [address], . -------- FINAL REPORT -------- Dictated By: Jayna Flores Dictated Date: 06/13/2024 16:13 ET Assigned Physician: Jayna Flores Reviewed and Electronically Signed By: Jayna Flores Signed Date: 06/13/2024 16:19 ET Workstation ID: [id number] Transcribed By: Self Edit Transcribed Date: 06/13/2024 16:13 ET us Mami Jimenez MD IMG BI PROCEDURES Final Result * BD Bone Density DXA Axial Skeleton (05/18/2024 9:39 AM EST) Anatomical Region Laterality Modality Wrist, Hip, L-spine Bone Densito metry 05/18/2024 2:21 PM EST Impressions 05/18/2024 2:23 PM EST Impression: This patient is considered to have osteoporosis by WHO criteria. The [facility] Department of Internal Medicine recommends using National [...] alternative screening schedule based on jens Hernández., [facility] May 31, 2011 for patients with osteopenia [...] Signed Date: 05/18/2024 14:23 ET Workstation ID: [id number] Transcribed By: Self Edit Transcribed Date: 05/18/2024 [...] to have osteoporosis by WHO criteria. The [facility] Department of Internal Medicine recommendsusing National Osteoporosis [...] FRAX. Optional alternative screening schedule based on maira Hernández al., NEJMJanuary 2011 for patients with osteopenia (based on [...] Signed Date: 05/18/2024 14:23 ET Workstation ID: [id number] Transcribed By: Self Edit Transcribed Date: 05/18/2024 14:21 ET Mami Jimenez MD IMG DXA PROCEDURES Final Result * Hepatitis C Screening (10/17/2016) Hepatitis C Screening Abstarcted Historical Provider HEALTH MAINTENANCE Final Result from Last 3 Months or Most Recently Relevant to Health Maintenance Insurance [facility] MEDICARE Member Subscriber Plan / Payer (Ef fective 2024-Present) Name:Antonina Omer Relation to Subscriber:Self Name:Antonina Omer Payer ID:[id number] Group ID:[id number] Type:Not on file Address: [facility] [place] [id number] Care Teams Recreation Assistant Relationship Specialty Start Date End Date Mami Jimenez MD [address] [place] [phone] PCP - General Internal Medicine 12/12/21
--- OUTSIDE RECORDS SUMMARY | 2025-03-01 16:14 | XMS_ITS | Encounter Summary ---
Author Organization [facility] Address [address] [place] [address] Care Team Providers Care Binding Machine Operator Name Role Phone Angelica San Primary Care Provide r Encounter Details Date Type Department Care Team ([facility] st Contact Info) Description 2021 Telephone [facility] Central Scheduling Department [address] [place] [phone] Telephone Intake, Staff Social History Tobacco Use Types Packs/Day Years [...] encounter Miscellaneous Notes * Telephone Encounter - Bandar Martinez - 2021 3:49 PM EDT PT of Dr Christian PT's sister Eula called to schedule a post op and a cat scan for the PT. Eula states that she spoke with someone that was helping to schedule these apts on the same day but she has not heard back. Eula can be reached at phone number [phone]. Thank you documented in this encounter Plan of Treatment Not on file documented as of this encounter Visit Diagnoses Not on filedocumented in this encounter Care Teams Binding Machine Operator Relationship Specialty Start Date End Date Angelica San [address] [place] [id number] PCP - General Internal Medicine 11/21/23 documented as of this encounter
--- OUTSIDE RECORDS SUMMARY | 2025-03-01 16:14 | XMS_ITS | Encounter Summary ---
Author Organization [facility] Address [address] [place] [address] Care Team Providers Care Nougat Candy Maker Helper Name Role Phone Angelica San Primary Care Provide r Encounter Details Date Type Department Care Team (Late st Contact Info) Description 07/01/2020 Orders Only [facility] Interventional Radiology [address] [place], [place] [phone] Maddison Barry MD [address] [place], [place] [phone] Neurofibromatosis, peripheral, NF1 (Primary Dx) Social History Tobacco Use Types Packs/Day Years Used Date Smoking Tobacco: Never Assessed Comments Unknown Sex and Gender Information Value Date Recorded Sex Assigned at Female 06/07/2020 1:17 PM EST Legal Sex Female 12:10 AM EDT Gender Identity Female 06/07/2020 1:17 PM EST Sexual Orientation Straight 06/07/2020 1: 17 PM EST documented as of this encounter Plan of Treatment Not on file documented as of this encounter Results * Due to [place] state law, this organization might not be sharing negative HIV tests. * COVID-19 PCR, Pre-Surgical (Asymptomatic) (07/15/2020 11:22 AM EST) SARS CoV 2 RNA, RT PCR Not Detected Not Detected CAESAR VIVAS QUANT STUDIO 07/15/2020 9:13 PM EST [facility] Comment:A Not Detected (Nega tive) test result is indicative of the absence of SARS-CoV-2 RNA at the level of LoD (Limit of Detection). A negative result does not rule out the possibility of COVID-19 and should not be used as the sole basis for treatment or patient management decisions. If COVID-19 is still suspected, based on exposure history together with other clinical findings, re-testing should be considered. Swab (Nasal (Self Collect)) Non-Blood Collection / Unknown 07/15/2020 11:22 AM EST 07/15/2020 2:27 PM EST Narrative [facility] - 07/15/2020 9:13 PM EST These tests were developed, validated, and their performance characteristics determined by the [facility] Vi[facility] at [facility] under CLIA [id number]. They have not been cleared or approved by the U.S. Food and Drug Administration (FDA). FDA Policy for Diagnostic Tests for Coronavirus Disease-2019 during the Public Health Emergency issued July 27, 2019, is followed. us Dhaval Ascencio MD LAB BODY FLUIDS AN D STOOLS ORDERABLES Final Result [facility] [address] [place] [address], documented in this encounter Visit Diagnoses Diagnosis Neurofibromatosis, peripheral, NF1- Primary Neurofibromatosis, Type 1 (von Recklinghausen's disease) documented in this encounter Care Teams Nougat Candy Maker Helper Relationship Specialty Start Date End Date Angelica San [address] [place] [id number] PCP - General Internal Medicine 11/21/23 documented as of this encounter
--- OUTSIDE RECORDS SUMMARY | 2025-03-01 16:14 | XMS_ITS ---
Author Name [facility] Organization Unknown Care Team Organization Name Specialty Phone Email Start Date End Da te [facility] Termed, PROVIDER Primary Care 03/20/202212/11
--- OUTSIDE RECORDS SUMMARY | 2025-03-01 16:14 | XMS_ITS | Encounter Summary ---
Author Organization [facility] Address [address] [place] [address] Care Team Providers Care Pharmacy Helper Name Role Phone Angelica San Primary Care Provide r Encounter Details Date Type Department Care Team (Late st Contact Info) Description 07/01/2020 Telephone [facility] Interventional Radiology [address] [place] [phone] Alla Chino Social History Tobacco Use Types Packs/Day Years Used Date Smoking Tobacco: Never Assessed Comments Unknown Sex and Gender Information Value Date Recorded Sex Assigned at Female 06/07/2020 1:17 PM EST Legal Sex Female 12:10 AM EDT Gender Identity Female 06/07/2020 1:17 PM EST Sexual Orientation Straight 06/07/2020 1: 17 PM EST documented as of this encounter Patient Instructions * Patient Instructions* Alla Chino - 07/01/2020 11:02 AM EST SARS-CoV2 (COVID-19) Preoperative and Preprocedural Testing Instructions I. Instructions Regarding Testing You are required to undergo testing for COVID-19 prior to your scheduled surgery or procedure. Thistest will take approximately 24 hours to process, and you will be called with the results. You must report to one of our ambulatory testing locations to have this test performed. Your preference in location ([facility] or [facility]) will be included in the lab order today, and you must report to the designated center. We will be unable to accommodate you at an alternative location. Testing must be performed 2 days prior to your scheduled surgical date. We require that you arrive at the testing location before 11:30 am the day of your assigned COVID testing. Failure to arrive for testing during this time window on your assigned day may result in cancellation or delay of your scheduled procedure. Please have your ID available at time of testing. No further paperwork will be required at time of presentation. II. Post-Testing Instructions Your surgeon or interventionalist???s office will contact you the day prior to surgery with your test results. These will aid in decision-making regarding any need for postponement of your procedure.If you have a [facility] account for your [facility] medical record, you can view these results inyour account once they are ready. Don???t hesitate to contact our office if you have any questions.Please note that if your test returns POSITIVE for COVID-19, we will notify the [place] Department of Public Health, as we are required to do for public health monitoring. III. Special Instructions for Surgery In addition to testing, we are asking you take additional precautions to stay healthy. You should begin following these precautions FIVE DAYS prior to your scheduled surgery or procedure. ??? Stay home except to get medical care: You should restrict activities outside your home, except for getting medical care. Do not go to work, school, or public areas. Avoid using public transportation, ride-sharing, or taxis. ??? Wear a facemask: You should wear a facemask when you are around other people ??? Clean your hands often: Wash your hands often with soap and water for at least 20 seconds or clean your hands with an alcohol-based hand composite science teacher that contains 60 to 95% alcohol, covering all surfaces of your hands and rubbing them together until they feel dry. Avoid touching your eyes, nose, and mouth with unwashed hands. Your household members should also wash their hands frequently. ??? Separate yourself from other people and animals in your home: As much as possible, you should stay in a specific room and away from other people in your home. Also, you should use a separate bathroom, if available. You should avoid visitors. ??? Avoid sharing personal household items: You should not share dishes, drinking glasses, cups, eating utensils, towels, or bedding with other people or pets in your home. After using these items, they should be washed thoroughly with soap and water. ??? Clean all ???high-touch?? surfaces everyday: High touch surfaces include counters, tabletops, doorknobs, bathroom fixtures, toilets, phones, keyboards, tablets, and bedside tables. Use a household cleaning spray or wipe, according to the label instructions. IV. Symptom Screening You will be screened for symptoms of COVID several times over the course of your care with us. Please expect a call from our nursing staff the day before your scheduled surgery or procedure, at whichtime they will perform a detailed screen and review any special instructions with you. Please let us know if, at the present time, you are experiencing any of the following: ??? Fever ??? Cough ??? Shortness of breath documented in this encounter Plan of Treatment Not on file documented as of this encounter Visit Diagnoses Not on filedocumented in this encounter Care Teams Pharmacy Helper Relationship Specialty Start Date End Date Angelica San [address] [place] [id number] PCP - General Internal Medicine 11/21/23 documented as of this encounter
== END 2025-03-01 13:47 | disposition home or self-care (01) ==
LOC: HO.HSM 13:17
PROVIDERS: PCP Internal Medicine; Visit Provider Psychiatry & Neurology Neurology
DX: Q85.01 Neurofibromatosis, type 1 (principal); Z98.2 Presence of cerebrospinal fluid drainage device; G40.909 Epilepsy, unspecified, not intractable, without status epilepticus
CPT/HCPCS: 99214

== ENCOUNTER → 2025-03-01 13:16 | Outpatient (BNVA) | payer OTHER, SELFPAY | PROVIDERS: PCP Internal Medicine; Visit Provider Psychiatry & Neurology Neurology | DX: Q85.01 Neurofibromatosis, type 1 (principal); G40.909 Epilepsy, unspecified, not intractable, without status epilepticus; Z98.2 Presence of cerebrospinal fluid drainage device | CPT/HCPCS: 99212 ==